=== PATIENT | female | born 1955 | race Caucasian/White ===

== ENCOUNTER → 2017-08-04 | Outpatient (CLI) | payer MEDICARE, OTHER ==
[~2017-08-04] MED LIST: AMINOPHYLLINE 500 MG/20 ML VIAL IV ONE; REGADENOSON 0.4 MG/5 ML SYRINGE IV ONE
--- NOTE | 2017-08-04 12:08 | NM ---
EXAMINATION TYPE: NM stress lexiscan cardiolite DATE OF EXAM: 08/04/2017 COMPARISON: NONE HISTORY: Angina TECHNIQUE: After the intravenous administration of 10.08 mCi Tc 99m Sestamibi - Cardiolite resting S PECT images acquired 45 minutes post injection. The patient received 0.4mg Lexiscan, 25.5 mCi Tc 99m Sestamibi - Stress images obtained [address] injection FINDINGS: Review of stress and rest SPECT images demonstrates no distinct perfusion abnormality. Gated analysi s shows normal wall motion with an estimated left ventricular ejection fraction of 63 %. IMPRESSION: No scintigraphic evidence for reversible ischemia.
--- NOTE | 2017-08-04 17:12 | EST ---
EXERCISE STRESS DATE OF SERVICE: August 04, 2017 AGE: 62 SEX: F HT: 5-7 WT: 155 PROTOCOL: Lexiscan Cardiolite HEART RATE REST: 57 BLOOD PRESSURE REST: 103/48 MAXIMUM HEART RATE ACHIEVED: 82 MAXIMUM BLOOD PRESSURE: 121/64 85% MPHR: 133 100% MPHR: 157 INDICATIONS: Chest pain. CLINICAL INFORMATION: STRESS DATA: Pretesting physical examination showed a heart rate of 57, pressure is 103/48 mmHg. Baseline EKG showed sinus mechanism. 0.4 mg of Lexiscan was given to the patient over 15 seconds per protocol. The max heart rate was 82 beats per minute and maximum pressure was 121/64 mmHg. Clinically the patient did not have any symptoms of chest pain or discomfort and the EKG did not show any significant ST or T-wave abnormalities consistent with ischemia. CONCLUSION: 1. Nondiagnostic electrocardiogram stress testing in response to Lexiscan. 2. Please follow up on the Cardiolite portion on separate report from the Radiology Department. MMODL / IJN: [id number] /
== END | disposition home or self-care (01) ==
LOC: RADNMMAIN 08:41
PROVIDERS: ATTEND Family Medicine
DX: I20.9 Angina pectoris, unspecified (principal); Z88.2 Allergy status to sulfonamides; Z88.8 Allergy status to other drugs, medicaments and biological substances
CPT/HCPCS: 93017; 78452; A9500; J0280; J2785

== ENCOUNTER 2018-11-02 10:30 | Emergency (ER) | payer MEDICARE, OTHER ==
[2018-11-02] MEDS ORDERED: IPRATROPIUM-ALBUTEROL 3 ML NEB INHALATION STA (11:14)
--- NOTE | 2018-11-02 11:17 | ED ---
General Adult HPI - General Chief complaint: Shortness of Breath Stated complaint: Altered mental Time Seen by Provider: 11/02/18 10:57 Source: patient, EMS, RN notes reviewed Mode of arrival: EMS Limitations: altered mental status - History of Present Illness Initial comments: Patient is a pleasant [age]-year-old female presenting to the emergency Dep artment with difficulty in breathing and reported change in mental status. Patient provides limited history. Patient is somewhat drowsy. Patient admits to feeling short of breath and has history of COPD. Patient states mild cough. Patient states she does not feel confused. Patient denies any swelling. No fevers. - Related Data Home Medications Medication Instructions Recorded Confirmed Amitriptyline HCl [Elavil] 100 mg PO HS 11/02/18 11/02/18 Baclofen [Lioresal] 20 mg PO TID 11/02/18 11/02/18 Benzonatate [Tessalon Perles] 100 mg PO TID PRN 11/02/18 11/02/18 Ibuprofen [Motrin] 800 mg PO TID PRN 11/02/18 11/02/18 Levocetirizine Dihydrochloride 5 mg PO DAILY 11/02/18 11/02/18 Lubiprostone [Amitiza] 24 mcg PO DAILY 11/02/18 11/02/18 Montelukast [Singulair] 10 mg PO DAILY 11/02/18 11/02/18 Morphine Sulfate [Morphabond ER] 60 mg PO Q12H 11/02/18 11/02/18 [place]-3 Acid Ethyl Esters [Lovaza] 1 gm PO QID 11/02/18 11/02/18 Pantoprazole Sodium [Protonix] 40 mg PO DAILY 11/02/18 11/02/18 Pregabalin [Lyrica] 150 mg PO BID 11/02/18 11/02/18 Sertraline [Zoloft] 100 mg PO BID 11/02/18 11/02/18 Simvastatin [Zocor] 40 mg PO HS 11/02/18 11/02/18 valACYclovir HCL [Valtrex] 1,000 mg PO DAILY 11/02/18 11/02/18 Allergies Allergy/AdvReac Type Severity Reaction Status Date / Time etanercept [From Enbrel] Allergy Unknown Verified 11/02/18 11:04 sulfamethoxazole Allergy Unknown Verified 11/02/18 11:04 [From Bactrim] trimethoprim [From Bactrim] Allergy Unknown Verified 11/02/18 11:04 Review of Systems ROS Statement: Those systems with pertinent positive or pertinent negative responses have been documented in the HPI. ROS Other: All systems not noted in ROS Statement are negative. Constitutional: Denies: fever Eyes: Denies: eye pain ENT: Denies: ear pain Respiratory: Reports: dyspnea Cardiovascular: Denies: chest pain Endocrine: Reports: fatigue Gastrointestinal: Denies: abdominal pain Genitourinary: Denies: dysuria Musculoskeletal: Denies: back pain Skin: Denies: rash Neurological: Reports: as per HPI. Denies: headache, weakness Past Medical History Past Medical History: Heart Failure, COPD, Hyperlipidemia History of Any Multi-Drug Resistant Organisms: None Reported Past Surgical History: Orthopedic Surgery Past Psychological History: Anxiety, Depression Smoking Status: Current every day smoker Past Alcohol Use History: None Reported Past Drug Use History: None Reported General Exam Limitations: altered mental status General appearance: other (Drowsy) Head exam: Present: atraumatic, normocephalic Eye exam: Present: PERRL, EOMI, other (Bilateral periorbital edema) ENT exam: Present: normal oropharynx Neck exam: Present: normal inspection Respiratory exam: Present: wheezes, decreased breath sounds Cardiovascular Exam: Present: regular rate, normal rhythm GI/Abdominal exam: Present: soft. Absent: tenderness Extremities exam: Present: normal inspection. Absent: pedal edema, calf tenderness Neurological exam: Present: other (Drowsy but able to answer most questions. Does follow commands, slightly delayed). Absent: motor sensory deficit Expanded Neurological exam: Present: protecting the airway Patient oriented to: Present: person, place. Absent: time Motor strength exam: RUE: 5, LUE: 5, RLE: 5, LLE: 5 Eye Response: (4) open spontaneously Motor Response: (6) obeys commands Verbal Response: (4) confused conversation Psychiatric exam: Present: normal affect, normal mood Skin exam: Present: normal color Course Vital Signs 11/02/18 11/02/18 11/02/18 10:35 10:51 11:00 Temperature 98.9 F Pulse Rate 88 86 Respiratory 24 11 L Rate Blood Pressure 105/61 105/61 O2 Sat by Pulse 96 88 L 95 Oximetry 11/02/18 11/02/18 11/02/18 11:15 11:30 11:45 Temperature Pulse Rate 81 75 71 Respiratory 11 L 18 19 Rate Blood Pressure 85/64 113/62 87/67 O2 Sat by Pulse 92 L 96 97 Oximetry 11/02/18 11/02/18 11/02/18 11:54 12:08 12:15 Temperature Pulse Rate 66 70 65 Respiratory 16 Rate Blood Pressure 80/59 O2 Sat by Pulse 96 Oximetry EKG Findings - EKG Comments: EKG Findings:: Normal sinus rhythm 85. OR 134. QRS 80. QT 386. QTc 459. Normal axis. Septal Q waves. No acute ST change. Procedures - ABG Interpretation Ph: 7.27 PCO2: 64.5 PO2: 87 Interpretation: respiratory acidosis Medical Decision Making - Medical Decision Making Patient reevaluated and significantly improved. Patient easily arousable to voice. Patient is more alert for conversation. Periorbital edema is somewhat improved. Patient has been lying more regularly. Previously patient had persistently tried to sit forward and keep her head down. This is possibly the reason for eye edema. Patient states she is feeling much better and more alert. Patient states she is also breathing much better. Dr. Richardson she has been paged for admission, covering for Dr. Chong. Patient states she sees Dr. Estee Coburn with pulmonary. - Lab Data Result diagrams: 11/02/18 11:06 11/02/18 11:06 Lab Results 11/02/18 11/02/18 11/02/18 Range/Units 11:06 11:06 11:06 WBC 9.7 (3.8-10.6) k/uL RBC 4.60 (3.80-5.40) m/uL Hgb 14.5 (11.4-16.0) gm/dL Hct 46.6 H (34.0-46.0) % MCV 101.3 H (80.0-100.0) fL MCH 31.6 (25.0-35.0) pg MCHC 31.2 (31.0-37.0) g/dL RDW 15.3 (11.5-15.5) % Plt Count 183 (150-450) k/uL Neutrophils % 78 % Lymphocytes % 15 % Monocytes % 4 % Eosinophils % 1 % Basophils % 0 % Neutrophils # 7.6 (1.3-7.7) k/uL Lymphocytes # 1.5 (1.0-4.8) k/uL Monocytes # 0.4 (0-1.0) k/uL Eosinophils # 0.1 (0-0.7) k/uL Basophils # 0.0 (0-0.2) k/uL Macrocytosis Slight PT (9.0-12.0) sec INR (<1.2) APTT (22.0-30.0) sec Sample Site ABG pH (7.35-7.45) ABG pCO2 (35-45) mmHg ABG pO2 (83-108) mmHg ABG HCO3 (21-25) mmol/L ABG O2 Saturation (94-97) % ABG Base Excess mmol/L FiO2 % Sodium 141 (137-145) mmol/L Potassium 4.4 (3.5-5.1) mmol/L Chloride 105 (98-107) mmol/L Carbon Dioxide 28 (22-30) mmol/L Anion Gap 8 mmol/L BUN 14 (7-17) mg/dL Creatinine 0.70 (0.52-1.04) mg/dL Est GFR (CKD-EPI)AfAm >90 (>60 ml/min/1.73 sqM) Est GFR (CKD-EPI)NonAf >90 (>60 ml/min/1.73 sqM) Glucose 117 H (74-99) mg/dL Calcium 9.0 (8.4-10.2) mg/dL Magnesium 2.0 (1.6-2.3) mg/dL Total Bilirubin 0.3 (0.2-1.3) mg/dL AST 33 (14-36) U/L ALT 36 (9-52) U/L Alkaline Phosphatase 72 (38-126) U/L Creatine Kinase 245 H (30-135) U/L Troponin I (0.000-0.034) ng/mL NT-Pro-B Natriuret Pep 374 pg/mL Total Protein 6.7 (6.3-8.2) g/dL Albumin 3.8 (3.5-5.0) g/dL Urine Color Urine Appearance (Clear) Urine pH (5.0-8.0) Ur Specific [place] (1.001-1.035) Urine Protein (Negative) Urine Glucose (UA) (Negative) Urine Ketones (Negative) Urine Blood (Negative) Urine Nitrite (Negative) Urine Bilirubin (Negative) Urine Urobilinogen (<2.0) mg/dL Ur Leukocyte Esterase (Negative) Urine Opiates Screen (NotDetected) Ur Oxycodone Screen (NotDetected) Urine Methadone Screen (NotDetected) Ur Propoxyphene Screen (NotDetected) Ur Barbiturates Screen (NotDetected) U Tricyclic Antidepress (NotDetected) Ur Phencyclidine Scrn (NotDetected) Ur Amphetamines Screen (NotDetected) U Methamphetamines Scrn (NotDetected) U Benzodiazepines Scrn (NotDetected) Urine Cocaine Screen (NotDetected) U Marijuana (THC) Screen (NotDetected) 11/02/18 11/02/18 11/02/18 Range/Units 11:06 11:06 11:30 WBC (3.8-10.6) k/uL RBC (3.80-5.40) m/uL Hgb (11.4-16.0) gm/dL Hct (34.0-46.0) % MCV (80.0-100.0) fL MCH (25.0-35.0) pg MCHC (31.0-37.0) g/dL RDW (11.5-15.5) % Plt Count (150-450) k/uL Neutrophils % % Lymphocytes % % Monocytes % % Eosinophils % % Basophils % % Neutrophils # (1.3-7.7) k/uL Lymphocytes # (1.0-4.8) k/uL Monocytes # (0-1.0) k/uL Eosinophils # (0-0.7) k/uL Basophils # (0-0.2) k/uL Macrocytosis PT 10.4 (9.0-12.0) sec INR 1.0 (<1.2) APTT 24.8 (22.0-30.0) sec Sample Site rrad ABG pH 7.27 L (7.35-7.45) ABG pCO2 65 H (35-45) mmHg ABG pO2 87 (83-108) mmHg ABG HCO3 29 H (21-25) mmol/L ABG O2 Saturation 97.5 H (94-97) % ABG Base Excess 0.2 mmol/L FiO2 32 % Sodium (137-145) mmol/L Potassium (3.5-5.1) mmol/L Chloride (98-107) mmol/L Carbon Dioxide (22-30) mmol/L Anion Gap mmol/L BUN (7-17) mg/dL Creatinine (0.52-1.04) mg/dL Est GFR (CKD-EPI)AfAm (>60 ml/min/1.73 sqM) Est GFR (CKD-EPI)NonAf (>60 ml/min/1.73 sqM) Glucose (74-99) mg/dL Calcium (8.4-10.2) mg/dL Magnesium (1.6-2.3) mg/dL Total Bilirubin (0.2-1.3) mg/dL AST (14-36) U/L ALT (9-52) U/L Alkaline Phosphatase (38-126) U/L Creatine Kinase (30-135) U/L Troponin I <0.012 (0.000-0.034) ng/mL NT-Pro-B Natriuret Pep pg/mL Total Protein (6.3-8.2) g/dL Albumin (3.5-5.0) g/dL Urine Color Urine Appearance (Clear) Urine pH (5.0-8.0) Ur Specific [place] (1.001-1.035) Urine Protein (Negative) Urine Glucose (UA) (Negative) Urine Ketones (Negative) Urine Blood (Negative) Urine Nitrite (Negative) Urine Bilirubin (Negative) Urine Urobilinogen (<2.0) mg/dL Ur Leukocyte Esterase (Negative) Urine Opiates Screen (NotDetected) Ur Oxycodone Screen (NotDetected) Urine Methadone Screen (NotDetected) Ur Propoxyphene Screen (NotDetected) Ur Barbiturates Screen (NotDetected) U Tricyclic Antidepress (NotDetected) Ur Phencyclidine Scrn (NotDetected) Ur Amphetamines Screen (NotDetected) U Methamphetamines Scrn (NotDetected) U Benzodiazepines Scrn (NotDetected) Urine Cocaine Screen (NotDetected) U Marijuana (THC) Screen (NotDetected) 11/02/18 Range/Units 13:40 WBC (3.8-10.6) k/uL RBC (3.80-5.40) m/uL Hgb (11.4-16.0) gm/dL Hct (34.0-46.0) % MCV (80.0-100.0) fL MCH (25.0-35.0) pg MCHC (31.0-37.0) g/dL RDW (11.5-15.5) % Plt Count (150-450) k/uL Neutrophils % % Lymphocytes % % Monocytes % % Eosinophils % % Basophils % % Neutrophils # (1.3-7.7) k/uL Lymphocytes # (1.0-4.8) k/uL Monocytes # (0-1.0) k/uL Eosinophils # (0-0.7) k/uL Basophils # (0-0.2) k/uL Macrocytosis PT (9.0-12.0) sec INR (<1.2) APTT (22.0-30.0) sec Sample Site ABG pH (7.35-7.45) ABG pCO2 (35-45) mmHg ABG pO2 (83-108) mmHg ABG HCO3 (21-25) mmol/L ABG O2 Saturation (94-97) % ABG Base Excess mmol/L FiO2 % Sodium (137-145) mmol/L Potassium (3.5-5.1) mmol/L Chloride (98-107) mmol/L Carbon Dioxide (22-30) mmol/L Anion Gap mmol/L BUN (7-17) mg/dL Creatinine (0.52-1.04) mg/dL Est GFR (CKD-EPI)AfAm (>60 ml/min/1.73 sqM) Est GFR (CKD-EPI)NonAf (>60 ml/min/1.73 sqM) Glucose (74-99) mg/dL Calcium (8.4-10.2) mg/dL Magnesium (1.6-2.3) mg/dL Total Bilirubin (0.2-1.3) mg/dL AST (14-36) U/L ALT (9-52) U/L Alkaline Phosphatase (38-126) U/L Creatine Kinase (30-135) U/L Troponin I (0.000-0.034) ng/mL NT-Pro-B Natriuret Pep pg/mL Total Protein (6.3-8.2) g/dL Albumin (3.5-5.0) g/dL Urine Color Yellow Urine Appearance Clear (Clear) Urine pH 5.5 (5.0-8.0) Ur Specific [place] 1.022 (1.001-1.035) Urine Protein Trace H (Negative) Urine Glucose (UA) Negative (Negative) Urine Ketones Negative (Negative) Urine Blood Negative (Negative) Urine Nitrite Negative (Negative) Urine Bilirubin Negative (Negative) Urine Urobilinogen <2.0 (<2.0) mg/dL Ur Leukocyte Esterase Negative (Negative) Urine Opiates Screen Detected H (NotDetected) Ur Oxycodone Screen Not Detected (NotDetected) Urine Methadone Screen Not Detected (NotDetected) Ur Propoxyphene Screen Not Detected (NotDetected) Ur Barbiturates Screen Detected H (NotDetected) U Tricyclic Antidepress Detected H (NotDetected) Ur Phencyclidine Scrn Not Detected (NotDetected) Ur Amphetamines Screen Not Detected (NotDetected) U Methamphetamines Scrn Not Detected (NotDetected) U Benzodiazepines Scrn Detected H (NotDetected) Urine Cocaine Screen Not Detected (NotDetected) U Marijuana (THC) Screen Not Detected (NotDetected) - Radiology Data Radiology results: report reviewed (Computed tomography scan of the brain shows no acute abnormality. Atrophy and age of the basilar artery versus basilar tip aneurysm. Bilateral periorbital preseptal soft tissue swelling. Globes are intact.), image reviewed (Chest x-ray shows right-sided atelectasis versus infiltrate. Elevated left hemidiaphragm.) Critical Care Time Critical Care Time: Yes Total Critical Care Time: 32 Disposition Clinical Impression: Respiratory failure, Hypercarbia Disposition: ADMITTED IP TO THIS [facility] Condition: Serious Is patient prescribed a controlled substance at d/c from ED?: No Referrals: Verenice Chong MD [Primary Care Provider] - 1-2 days Decision Time: 14:57
[2018-11-02 11:40] LABS: ABG Base Excess 0.2 mmol/L; ABG HCO3 29 mmol/L (21-25); ABG Oxygen Saturation 97.5 % (94-97); ABG PCO2 65 mmHg (35-45); ABG PH 7.27 (7.35-7.45); ABG PO2 87 mmHg (83-108); Allen Test Performed? Yes
[2018-11-02 11:52] LABS: Basophils % (A) 0 %; Eosinophils # (A) 0.1 k/uL (0-0.7); Eosinophils % (A) 1 %; HCT 46.6 % (34.0-46.0); HGB 14.5 gm/dL (11.4-16.0); Lymphocytes # (A) 1.5 k/uL (1.0-4.8); Lymphocytes % (A) 15 %; MCH 31.6 pg (25.0-35.0); MCHC 31.2 g/dL (31.0-37.0); MCV 101.3 fL (80.0-100.0); Macrocytosis Slight; Mean Platelet Volume 7.7; Monocytes # (A) 0.4 k/uL (0-1.0); Monocytes % (A) 4 %; Neutrophils # (A) 7.6 k/uL (1.3-7.7); Neutrophils % (A) 78 %; Platelet Count 183 k/uL (150-450); RDW 15.3 % (11.5-15.5); WBC 9.7 k/uL (3.8-10.6)
[2018-11-02 11:59] LABS: ALT 36 U/L (9-52); AST 33 U/L (14-36); African American GFR (CKD) >90 (>60 ml/min/1.73 sqM); Albumin 3.8 g/dL (3.5-5.0); Alkaline Phosphatase 72 U/L (38-126); Anion Gap 8 mmol/L; Blood Urea Nitrogen 14 mg/dL (7-17); Carbon Dioxide 28 mmol/L (22-30); Chloride 105 mmol/L (98-107); Creatine Kinase 245 U/L (30-135); Glucose 117 mg/dL (74-99); Non-African American GFR(CKD) >90 (>60 ml/min/1.73 sqM); Partial Thromboplastin Time 24.8 sec (22.0-30.0); Potassium 4.4 mmol/L (3.5-5.1); Prothrombin Time 10.4 sec (9.0-12.0); Sodium 141 mmol/L (137-145); Total Bilirubin 0.3 mg/dL (0.2-1.3); Total Protein 6.7 g/dL (6.3-8.2)
--- NOTE | 2018-11-02 12:16 | XR ---
EXAMINATION TYPE: XR chest 1V DATE OF EXAM: 11/02/2018 COMPARISON: NONE HISTORY: Difficulty breathing TECHNIQUE: Single frontal view of the chest is obtained. FINDINGS: There is left hemidiaphragm elevation. Patchy right lower lobe airspace disease and inters titial prominence throughout the right lung are seen. Cardia mediastinal silhouette is partially obsc ured but appears upper limits of normal in size. No sizable pleural effusion or pneumothorax. Mild os seous demineralization without acute osseous process seen. IMPRESSION: Patchy right basilar airspace disease and right-sided interstitial prominence may be exa ggerated by slight rotation although early developing right basilar pneumonia/atelectasis are possibl e. Left hemidiaphragm is also elevated. Sniff test could be considered if there is concern for diaphr agmatic paresis.
--- NOTE | 2018-11-02 13:51 | CT ---
EXAMINATION TYPE: CT brain wo con DATE OF EXAM: 11/02/2018 COMPARISON: None HISTORY: Altered mental status changes CT DLP: 1190.4 mGycm Automated exposure control for dose reduction was used. TECHNIQUE: CT scan of the head is performed without contrast. FINDINGS: There is no acute intracranial hemorrhage or midline shift identified. There is mild diff use ventricular and sulcal prominence consistent with diffuse age-related cerebral atrophy. There is low-attenuation in the periventricular white matter consistent with chronic small vessel ischemic ch marjorie. Scant mucosal thickening is seen on the left maxillary sinus and ethmoid sinuses. The globes ar e intact and the remaining visualized sinuses are clear. There appears to be bilateral periorbital preseptal soft tissue swelling. IMPRESSION: 1. No acute intracranial hemorrhage or midline shift. 2. Mild degree age-related cerebral atrophy and few areas of patchy hypoattenuation, likely on the ba sis of chronic microangiopathy. 3. 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 CTA or MRA brain could be utilized for further evaluation. 4. Bilateral periorbital preseptal soft tissue swelling. The globes appear intact and no evidence of lens displacement.
[2018-11-02 13:54] LABS: Appearance,Urine Clear (Clear); Bilirubin,Urine Negative (Negative); Blood,Urine Negative (Negative); Color,Urine Yellow; Glucose,Urine (UA) Negative (Negative); Ketones,Urine Negative (Negative); Leukocyte Esterase,Urine Negative (Negative); Nitrite,Urine Negative (Negative); PH, Urine 5.5 (5.0-8.0); Protein,Urine Trace (Negative); Specific Gravity,Urine 1.022 (1.001-1.035); Urobilinogen,Urine <2.0 mg/dL (<2.0)
[2018-11-02 14:03] LABS: Amphetamine Screen,Urine Not Detected (NotDetected); Benzodiazepines Screen,Urine Detected (NotDetected); Cocaine Screen,Urine Not Detected (NotDetected); Opiate Screen,Urine Detected (NotDetected); Phencyclidine Screen,Urine Not Detected (NotDetected); Tricyclic Antidepressant,Urine Detected (NotDetected); Urn Cannabinoid Scrn Not Detected (NotDetected)
[2018-11-02 14:04] LABS: Barbiturate Screen,Urine Detected (NotDetected); Methadone Screen, Urine Not Detected (NotDetected); Oxycodone Screen, Urine Not Detected (NotDetected)
[2018-11-02] MEDS ORDERED: IPRATROPIUM-ALBUTEROL 3 ML NEB INHALATION PRN (14:57)
[2018-11-02] MEDS ORDERED: methylPREDNISolone SOD SUCCI 125 MG/2 ML VIAL IV STA (14:57)
[2018-11-02] MEDS ORDERED: SODIUM CHLORIDE 0.9% 1,000 ML IV SCH (15:00)
[2018-11-02] MEDS ORDERED: IPRATROPIUM-ALBUTEROL 3 ML NEB INHALATION SCH (16:00)
[2018-11-02 16:22] VITALS: BP 122/74; PULSE 81; RESP 24
[2018-11-02 16:28] VITALS: TEMP 98.2
[2018-11-02] MEDS ORDERED: methylPREDNISolone SOD SUCCI 125 MG/2 ML VIAL IV SCH (19:00)
== END 2018-11-02 16:27 | disposition left against medical advice (07) ==
LOC: EC 10:30 → SUPCPDRO 10:30 → UNDOADMIN 14:57 → 3SCARD 14:57 → EC 16:27
DX: J96.92 Respiratory failure, unspecified with hypercapnia (principal); E78.5 Hyperlipidemia, unspecified; F41.9 Anxiety disorder, unspecified; F32.9 Major depressive disorder, single episode, unspecified; F17.200 Nicotine dependence, unspecified, uncomplicated; Z79.891 Long term (current) use of opiate analgesic; Z79.899 Other long term (current) drug therapy; Z88.8 Allergy status to other drugs, medicaments and biological substances; Z88.2 Allergy status to sulfonamides
CPT/HCPCS: 36415; 94660; 94640; 36600; 93005; 83880; 80053; 82550; 82805; 83735; 84484; 85025; 85610; 85730; 81003; 80306; 71045; 70450; 99291; 96374; 96361; J2930

== ENCOUNTER 2021-07-17 13:54 | Inpatient (IN) | payer MEDICARE, OTHER ==
--- NOTE | 2021-07-17 14:26 | ED ---
General Adult HPI - General Chief complaint: Altered Mental Status Stated complaint: UTI/AMS Time Seen by Provider: 07/17/21 14:06 Source: EMS Mode of arrival: EMS Limitations: no limitations - History of Present Illness Initial comments: This 66-year-old female presents emergency Department with altered mental status. Patient is a poor historian and was brought in by EMS as a bystander found patient wandering around outside. Patient is awake and alert sitting in bed. Patient is able to tell me her name, however she is unable to tell me where she is at where she is at or her age. Patient is sitting in bed looking around, wearing 2 different sandals and in a nightgown. Patient is unable to answer any questions. - Related Data Home Medications Medication Instructions Recorded Confirmed Amitriptyline HCl [Elavil] 100 mg PO HS 11/02/18 07/17/21 Ibuprofen [Motrin] 800 mg PO TID PRN 11/02/18 07/17/21 Montelukast [Singulair] 10 mg PO DAILY 11/02/18 07/17/21 Pantoprazole Sodium [Protonix] 40 mg PO DAILY 11/02/18 07/17/21 Pregabalin [Lyrica] 150 mg PO BID 11/02/18 07/17/21 Sertraline [Zoloft] 100 mg PO BID 11/02/18 07/17/21 Simvastatin [Zocor] 40 mg PO HS 11/02/18 07/17/21 Butalb/APAP/Caff 50-325-40Mg 1 - 2 tab PO Q6H PRN 07/17/21 07/17/21 [Fioricet 50-325-40] Cyclobenzaprine [Flexeril] 10 mg PO TID 07/17/21 07/17/21 Fluticasone/Salmeterol [Advair Hfa 1 puff INHALATION RT-BID 07/17/21 07/17/21 230-21 Mcg Inhaler] Folic Acid 1 mg PO DAILY 07/17/21 07/17/21 HYDROcodone/APAP 10-325MG [[place] 1 tab PO BID PRN 07/17/21 07/17/21 10-325] Ipratropium-Albuterol Nebulize 3 ml INHALATION RT-Q6H PRN 07/17/21 07/17/21 [Duoneb 0.5 mg-3 mg/3 ml Soln] Ipratropium/Albuter 20-100Mcg 2 puff INHALATION RT-Q6H PRN 07/17/21 07/17/21 [Combivent Respimat 20-100Mcg Inhaler] LORazepam [Ativan] 1 mg PO QID PRN 07/17/21 07/17/21 Loratadine [Claritin] 10 mg PO DAILY 07/17/21 07/17/21 Lubiprostone [Amitiza] 24 mcg PO DAILY 07/17/21 07/17/21 Morphine Sulfate ER [Ms Contin] 60 mg PO BID 07/17/21 07/17/21 Allergies Allergy/AdvReac Type Severity Reaction Status Date / Time etanercept [From Enbrel] Allergy Unknown Verified 07/17/21 16:36 sulfamethoxazole Allergy Unknown Verified 07/17/21 16:36 [From Bactrim] trimethoprim [From Bactrim] Allergy Unknown Verified 07/17/21 16:36 Review of Systems ROS Statement: Those systems with pertinent positive or pertinent negative responses have been documented in the HPI. ROS Other: All systems not noted in ROS Statement are negative. Past Medical History Past Medical History: Heart Failure, COPD, Hyperlipidemia History of Any Multi-Drug Resistant Organisms: None Reported Past Surgical History: Orthopedic Surgery Past Psychological History: Anxiety, Depression Smoking Status: Current every day smoker Past Alcohol Use History: None Reported Past Drug Use History: None Reported General Exam Limitations: no limitations, altered mental status General appearance: alert, in no apparent distress, other ([facility] Hair unbrushed, wearing 2 different issues) Head exam: Present: atraumatic, normocephalic, normal inspection Eye exam: Present: normal appearance, PERRL, EOMI. Absent: scleral icterus, conjunctival injection, periorbital swelling Pupils: Present: normal accommodation ENT exam: Present: normal exam, mucous membranes moist, other (Poor oral hygiene) Neck exam: Present: full ROM Respiratory exam: Present: normal lung sounds bilaterally. Absent: respiratory distress, wheezes, rales, rhonchi, stridor Cardiovascular Exam: Present: regular rate, normal rhythm, normal heart sounds. Absent: systolic murmur, diastolic murmur, rubs, gallop, clicks GI/Abdominal exam: Present: soft, normal bowel sounds. Absent: distended, tenderness, guarding, rebound, rigid Extremities exam: Present: full ROM, normal capillary refill. Absent: normal inspection (Venous insufficiency with brownish discoloration of bilateral feet. DP pulses palpable), tenderness, pedal edema, joint swelling, calf tenderness Back exam: Present: full ROM. Absent: CVA tenderness (R), CVA tenderness (L), paraspinal tenderness, vertebral tenderness Neurological exam: Present: alert, altered, other (When asked to raise bilateral arms, bilateral legs, squeeze my fingers, follow my finger and 6 cardinal signs of direction, patient does not perform any of these tasks. She just looked at me and smiled. When asking patient to raise bilateral arms and bilateral legs, she does look at me and smiled.). Absent: oriented X3 (Patient is unable to state her name, where she is at, or her age) Skin exam: Present: warm, dry, intact Course Vital Signs 07/17/21 07/17/21 07/17/21 14:11 14:14 15:52 Temperature 98.9 F Pulse Rate 99 89 Respiratory 22 20 Rate Blood Pressure 157/88 150/92 O2 Sat by Pulse 100 98 Oximetry 07/17/21 17:18 Temperature Pulse Rate 96 Respiratory 20 Rate Blood Pressure 156/99 O2 Sat by Pulse 99 Oximetry - Reevaluation(s) Reevaluation #1: 07/17/21 14:32 On reevaluation, patient states her name is Beverly. Patient is awake and alert. She is unsure where she is at or her age. She denies any chest pain, shortness of breath, nausea, vomiting, headache, lightheadedness, dizziness 07/17/21 15:03 On reevaluation, Patient is awake and alert. Patient knows her name She is unsure where she is at or her age. She denies any chest pain, shortness of breath, nausea, vomiting, headache, lightheadedness, dizziness. She denies any abdominal pain, change in vision 07/17/21 16:24 On reevaluation, patient states her name is Beverly. Patient is sitting in bed, awake and alert. She is unsure where she is at or her age. She denies any chest pain, shortness of breath, nausea, vomiting, headache, lightheadedness, dizziness. Waiting to begin heparin until CTA results. 07/17/21 16:59 On reevaluation, patient states her name is Beverly. Patient is sitting in bed, awake and alert. She is unsure where she is at or her age. She denies any chest pain, shortness of breath, nausea, vomiting, headache, lightheadedness, dizzines 07/17/21 17:26 On reevaluation, patient is awake and alert. She is able to state her name is Beverly. She is unsure where she is at. She is not sure what year it is and she does not know her age. She is denying any symptoms at this time such as chest pain, shortness of breath, abdominal pain, nausea, vomiting, headache, lightheadedness, dizziness. CT scans were interpreted, no intracranial hemorrhage present. Heparin was started for elevated troponin 07/17/21 18:01 On reexamination, patient is awake and alert sitting in bed. She is denying any chest pain or shortness of breath. Patient states "I feel good." Patient stat es her name is Beverly, however when asked where she is she states "I don't know." I did admit patient to 's services. He did instruct that I stop patient's heparin. He stated he was going to consult neurology and did not recommend me consulting cardiology. He did recommend I placed patient on telemetry, daily aspirin and Lipitor which I did place. I did inform my attending, Dr. Morrow of these changes as well. 07/17/21 18:36 On reexamination, patient is awake and alert. Patient is sitting in bed. Patient is aware of who she is and did state her name, however she states she d oesn't know what year it is or where she is at. EKG Findings - EKG Comments: EKG Findings:: EKG impression: Sinus rhythm with occasional ventricular premature complexes. Ventricular rate 99 bpm. MI interval 125. QRS duration 95. QT/QTc 404/460. No ST elevations noted. EKG interpreted by myself, Dr. Morrow and Dr. Smith Medical Decision Making - Medical Decision Making This 66-year-old female presents to the emergency department brought in by EMS who was called by a bystander who saw patient walking outside alone and looks disheveled. Patient was uncooperative with interview and would not answer any questions other than her name on examination. Patient's labs without any leukocytosis. Potassium 3.0 and patient was given supplement per 's recommendation. Troponin 0.285, I did begin patient on heparin due to her elevated troponin, however after speaking to , he instructed me to remove the heparin as he believes the troponin elevation is neurologically related. He stated he would consult neurology for this patient. He instructed me not to consult cardiology. He did instruct me to place patient on telemetry, daily aspirin and Lipitor which I did begin patient on. I did discuss his request along with the patient's case in detail with my attending, Dr. Morrow. Toxicology with opiates, barbiturates and tricyclic antidepressants detected. Patient with CT brain without contrast impression no acute intracranial hemorrhage or gross acute cortical infarct. CTA head and neck impression: No significant arterial stenosis, occlusion, dissection or other acute arterial abnormality. Questionable small 4 mm saccular aneurysm versus infundibulum of the supraclinoid portion of the left internal carotid artery. Chest x-ray impression: COPD changes, similar chronic interstitial changes in the right greater in left, similar elevated left diaphragm. - Lab Data Result diagrams: 07/17/21 14:25 07/17/21 14:25 Lab Results 07/17/21 07/17/21 07/17/21 Range/Units 14:25 14:25 14:25 WBC 6.8 (3.8-10.6) k/uL RBC 4.77 (3.80-5.40) m/uL Hgb 15.4 (11.4-16.0) gm/dL Hct 47.2 H (34.0-46.0) % MCV 98.8 (80.0-100.0) fL MCH 32.3 (25.0-35.0) pg MCHC 32.7 (31.0-37.0) g/dL RDW 15.0 (11.5-15.5) % Plt Count 171 (150-450) k/uL MPV 8.8 Neutrophils % 80 % Lymphocytes % 12 % Monocytes % 6 % Eosinophils % 1 % Basophils % 0 % Neutrophils # 5.4 (1.3-7.7) k/uL Lymphocytes # 0.8 L (1.0-4.8) k/uL Monocytes # 0.4 (0-1.0) k/uL Eosinophils # 0.1 (0-0.7) k/uL Basophils # 0.0 (0-0.2) k/uL PT 12.2 H (9.0-12.0) sec INR 1.1 (<1.2) APTT 24.5 (22.0-30.0) sec Sodium (137-145) mmol/L Potassium (3.5-5.1) mmol/L Chloride (98-107) mmol/L Carbon Dioxide (22-30) mmol/L Anion Gap mmol/L BUN (7-17) mg/dL Creatinine (0.52-1.04) mg/dL Est GFR (CKD-EPI)AfAm (>60 ml/min/1.73 sqM) Est GFR (CKD-EPI)NonAf (>60 ml/min/1.73 sqM) Glucose (74-99) mg/dL POC Glucose (mg/dL) (75-99) mg/dL POC Glu Service Desk Team Lead ID Calcium (8.4-10.2) mg/dL Total Bilirubin (0.2-1.3) mg/dL AST (14-36) U/L ALT (4-34) U/L Alkaline Phosphatase (38-126) U/L Ammonia (<30) umol/L Troponin I (0.000-0.034) ng/mL Total Protein (6.3-8.2) g/dL Albumin (3.5-5.0) g/dL Urine Color Yellow Urine Appearance Clear (Clear) Urine pH 6.5 (5.0-8.0) Ur Specific [place] 1.022 (1.001-1.035) Urine Protein 1+ H (Negative) Urine Glucose (UA) Negative (Negative) Urine Ketones 2+ H (Negative) Urine Blood Small H (Negative) Urine Nitrite Negative (Negative) Urine Bilirubin Negative (Negative) Urine Urobilinogen <2.0 (<2.0) mg/dL Ur Leukocyte Esterase Negative (Negative) Urine RBC 35 H (0-5) /hpf Urine WBC 2 (0-5) /hpf Ur Squamous Epith Cells <1 (0-4) /hpf Urine Bacteria Rare H (None) /hpf Urine Mucus Many H (None) /hpf Urine Opiates Screen Detected H (NotDetected) Ur Oxycodone Screen Not Detected (NotDetected) Urine Methadone Screen Not Detected (NotDetected) Ur Propoxyphene Screen Not Detected (NotDetected) Ur Barbiturates Screen Detected H (NotDetected) U Tricyclic Antidepress Detected H (NotDetected) Ur Phencyclidine Scrn Not Detected (NotDetected) Ur Amphetamines Screen Not Detected (NotDetected) U Methamphetamines Scrn Not Detected (NotDetected) U Benzodiazepines Scrn Not Detected (NotDetected) Urine Cocaine Screen Not Detected (NotDetected) U Marijuana (THC) Screen Not Detected (NotDetected) Serum Alcohol mg/dL 07/17/21 07/17/21 07/17/21 Range/Units 14:25 14:25 14:25 WBC (3.8-10.6) k/uL RBC (3.80-5.40) m/uL Hgb (11.4-16.0) gm/dL Hct (34.0-46.0) % MCV (80.0-100.0) fL MCH (25.0-35.0) pg MCHC (31.0-37.0) g/dL RDW (11.5-15.5) % Plt Count (150-450) k/uL MPV Neutrophils % % Lymphocytes % % Monocytes % % Eosinophils % % Basophils % % Neutrophils # (1.3-7.7) k/uL Lymphocytes # (1.0-4.8) k/uL Monocytes # (0-1.0) k/uL Eosinophils # (0-0.7) k/uL Basophils # (0-0.2) k/uL PT (9.0-12.0) sec INR (<1.2) APTT (22.0-30.0) sec Sodium 136 L (137-145) mmol/L Potassium 3.0 L (3.5-5.1) mmol/L Chloride 99 (98-107) mmol/L Carbon Dioxide 30 (22-30) mmol/L Anion Gap 7 mmol/L BUN 17 (7-17) mg/dL Creatinine 0.43 L (0.52-1.04) mg/dL Est GFR (CKD-EPI)AfAm >90 (>60 ml/min/1.73 sqM) Est GFR (CKD-EPI)NonAf >90 (>60 ml/min/1.73 sqM) Glucose 125 H (74-99) mg/dL POC Glucose (mg/dL) (75-99) mg/dL POC Glu Service Desk Team Lead ID Calcium 8.7 (8.4-10.2) mg/dL Total Bilirubin 0.8 (0.2-1.3) mg/dL AST 219 H (14-36) U/L ALT 54 H (4-34) U/L Alkaline Phosphatase 94 (38-126) U/L Ammonia <9 (<30) umol/L Troponin I 0.285 H* (0.000-0.034) ng/mL Total Protein 7.0 (6.3-8.2) g/dL Albumin 3.9 (3.5-5.0) g/dL Urine Color Urine Appearance (Clear) Urine pH (5.0-8.0) Ur Specific [place] (1.001-1.035) Urine Protein (Negative) Urine Glucose (UA) (Negative) Urine Ketones (Negative) Urine Blood (Negative) Urine Nitrite (Negative) Urine Bilirubin (Negative) Urine Urobilinogen (<2.0) mg/dL Ur Leukocyte Esterase (Negative) Urine RBC (0-5) /hpf Urine WBC (0-5) /hpf Ur Squamous Epith Cells (0-4) /hpf Urine Bacteria (None) /hpf Urine Mucus (None) /hpf Urine Opiates Screen (NotDetected) Ur Oxycodone Screen (NotDetected) Urine Methadone Screen (NotDetected) Ur Propoxyphene Screen (NotDetected) Ur Barbiturates Screen (NotDetected) U Tricyclic Antidepress (NotDetected) Ur Phencyclidine Scrn (NotDetected) Ur Amphetamines Screen (NotDetected) U Methamphetamines Scrn (NotDetected) U Benzodiazepines Scrn (NotDetected) Urine Cocaine Screen (NotDetected) U Marijuana (THC) Screen (NotDetected) Serum Alcohol <10 mg/dL 07/17/21 Range/Units 14:28 WBC (3.8-10.6) k/uL RBC (3.80-5.40) m/uL Hgb (11.4-16.0) gm/dL Hct (34.0-46.0) % MCV (80.0-100.0) fL MCH (25.0-35.0) pg MCHC (31.0-37.0) g/dL RDW (11.5-15.5) % Plt Count (150-450) k/uL MPV Neutrophils % % Lymphocytes % % Monocytes % % Eosinophils % % Basophils % % Neutrophils # (1.3-7.7) k/uL Lymphocytes # (1.0-4.8) k/uL Monocytes # (0-1.0) k/uL Eosinophils # (0-0.7) k/uL Basophils # (0-0.2) k/uL PT (9.0-12.0) sec INR (<1.2) APTT (22.0-30.0) sec Sodium (137-145) mmol/L Potassium (3.5-5.1) mmol/L Chloride (98-107) mmol/L Carbon Dioxide (22-30) mmol/L Anion Gap mmol/L BUN (7-17) mg/dL Creatinine (0.52-1.04) mg/dL Est GFR (CKD-EPI)AfAm (>60 ml/min/1.73 sqM) Est GFR (CKD-EPI)NonAf (>60 ml/min/1.73 sqM) Glucose (74-99) mg/dL POC Glucose (mg/dL) 123 H (75-99) mg/dL POC Glu Service Desk Team Lead ID Donald Gauthier Calcium (8.4-10.2) mg/dL Total Bilirubin (0.2-1.3) mg/dL AST (14-36) U/L ALT (4-34) U/L Alkaline Phosphatase (38-126) U/L Ammonia (<30) umol/L Troponin I (0.000-0.034) ng/mL Total Protein (6.3-8.2) g/dL Albumin (3.5-5.0) g/dL Urine Color Urine Appearance (Clear) Urine pH (5.0-8.0) Ur Specific [place] (1.001-1.035) Urine Protein (Negative) Urine Glucose (UA) (Negative) Urine Ketones (Negative) Urine Blood (Negative) Urine Nitrite (Negative) Urine Bilirubin (Negative) Urine Urobilinogen (<2.0) mg/dL Ur Leukocyte Esterase (Negative) Urine RBC (0-5) /hpf Urine WBC (0-5) /hpf Ur Squamous Epith Cells (0-4) /hpf Urine Bacteria (None) /hpf Urine Mucus (None) /hpf Urine Opiates Screen (NotDetected) Ur Oxycodone Screen (NotDetected) Urine Methadone Screen (NotDetected) Ur Propoxyphene Screen (NotDetected) Ur Barbiturates Screen (NotDetected) U Tricyclic Antidepress (NotDetected) Ur Phencyclidine Scrn (NotDetected) Ur Amphetamines Screen (NotDetected) U Methamphetamines Scrn (NotDetected) U Benzodiazepines Scrn (NotDetected) Urine Cocaine Screen (NotDetected) U Marijuana (THC) Screen (NotDetected) Serum Alcohol mg/dL Disposition Clinical Impression: NSTEMI (non-ST elevated myocardial infarction), Hypokalemia, Altered mental status Disposition: ADMITTED IP TO THIS HOSP Condition: Serious
[2021-07-17 14:32] LABS: Glucose,Whole Blood 123 mg/dL (75-99)
[2021-07-17 14:37] LABS: Basophils % (A) 0 %; Eosinophils # (A) 0.1 k/uL (0-0.7); Eosinophils % (A) 1 %; HCT 47.2 % (34.0-46.0); HGB 15.4 gm/dL (11.4-16.0); Lymphocytes # (A) 0.8 k/uL (1.0-4.8); Lymphocytes % (A) 12 %; MCH 32.3 pg (25.0-35.0); MCHC 32.7 g/dL (31.0-37.0); MCV 98.8 fL (80.0-100.0); Mean Platelet Volume 8.8; Monocytes # (A) 0.4 k/uL (0-1.0); Monocytes % (A) 6 %; Neutrophils # (A) 5.4 k/uL (1.3-7.7); Neutrophils % (A) 80 %; Platelet Count 171 k/uL (150-450); RBC 4.77 m/uL (3.80-5.40); WBC 6.8 k/uL (3.8-10.6)
[2021-07-17 14:45] LABS: INR 1.1 (<1.2); Partial Thromboplastin Time 24.5 sec (22.0-30.0); Prothrombin Time 12.2 sec (9.0-12.0)
[2021-07-17 15:02] LABS: ALT 54 U/L (4-34); AST 219 U/L (14-36); African American GFR (CKD) >90 (>60 ml/min/1.73 sqM); Albumin 3.9 g/dL (3.5-5.0); Alcohol <10 mg/dL; Alkaline Phosphatase 94 U/L (38-126); Anion Gap 7 mmol/L; Blood Urea Nitrogen 17 mg/dL (7-17); Calcium 8.7 mg/dL (8.4-10.2); Carbon Dioxide 30 mmol/L (22-30); Chloride 99 mmol/L (98-107); Glucose 125 mg/dL (74-99); Non-African American GFR(CKD) >90 (>60 ml/min/1.73 sqM); Sodium 136 mmol/L (137-145); Total Bilirubin 0.8 mg/dL (0.2-1.3)
[2021-07-17 15:31] LABS: Appearance,Urine Clear (Clear); Bacteria,Urine Rare /hpf; Bilirubin,Urine Negative (Negative); Blood,Urine Small (Negative); Color,Urine Yellow; Glucose,Urine (UA) Negative (Negative); Ketones,Urine 2+ (Negative); Leukocyte Esterase,Urine Negative (Negative); Mucus,Urine Many /hpf; Nitrite,Urine Negative (Negative); PH, Urine 6.5 (5.0-8.0); Protein,Urine 1+ (Negative); RBC,Urine 35 /hpf (0-5); Specific Gravity,Urine 1.022 (1.001-1.035); Squamous Epithelial Cell,Urine <1 /hpf (0-4); Urobilinogen,Urine <2.0 mg/dL (<2.0); WBC,Urine 2 /hpf (0-5)
[2021-07-17 15:50] LABS: Amphetamine Screen,Urine Not Detected (NotDetected); Barbiturate Screen,Urine Detected (NotDetected); Benzodiazepines Screen,Urine Not Detected (NotDetected); Cocaine Screen,Urine Not Detected (NotDetected); Methadone Screen, Urine Not Detected (NotDetected); Opiate Screen,Urine Detected (NotDetected); Oxycodone Screen, Urine Not Detected (NotDetected); Phencyclidine Screen,Urine Not Detected (NotDetected); Tricyclic Antidepressant,Urine Detected (NotDetected); Urn Cannabinoid Scrn Not Detected (NotDetected)
--- NOTE | 2021-07-17 16:24 | CT ---
EXAMINATION TYPE: CT brain wo con DATE OF EXAM: 07/17/2021 COMPARISON: CT dated 11/02/2018 HISTORY: Altered mental status. CT DLP: 1081.8 mGycm Automated exposure control for dose reduction was used. TECHNIQUE: CT scan of the brain is performed without IV contrast administration. FINDINGS: Brain volume loss changes, likely age-related. Bilateral cerebral white matter hypodensities, likely representing mild chronic microvascular ischemic changes. Scattered arterial atherosclerotic calcific ations. Bilateral basal ganglia hypodensities, possibly ischemic. No acute intracranial hemorrhage. No gross acute cortical infarct. No midline shift, herniation or ventriculomegaly. Unremarkable altman-white matter differentiation, basal cisterns, sella and CP angles. No gross space-o ccupying lesion, vasogenic edema or mass effect. Unremarkable orbits. Mild mucosal thickening of the left maxillary sinus. Clear mastoid air cells. Un remarkable calvarial bones. IMPRESSION: No acute intracranial hemorrhage or gross acute cortical infarct. Incidental findings as described ab cesare.
--- NOTE | 2021-07-17 16:37 | XR ---
EXAMINATION TYPE: XR chest 2V DATE OF EXAM: 07/17/2021 4:30 PM COMPARISON:Chest radiographs from 11/02/2018. CTA neck same day. TECHNIQUE: XR chest 2V Frontal view of the chest. CLINICAL INDICATION:Female, 66 years old with history of altered mental status; FINDINGS: Lungs/Pleura: There is a similar elevated left diaphragm. Similar scattered increased interstitial op acities most pronounced in the right. Increased lucency at the lung apices better appreciated on CT. There is no evidence of pleural effusion, focal consolidation, or pneumothorax. Pulmonary vascularity: Unremarkable. Heart/mediastinum: Cardiomediastinal silhouette is unremarkable. Musculoskeletal: No acute osseous pathology. IMPRESSION: 1. Similar chronic interstitial changes in the right greater than left. 2. Similar elevated left diaphragm. 3. COPD changes.
[2021-07-17] MEDS ORDERED: POTASSIUM CHLORIDE 10 MEQ in WATER FOR INJECTION 1 100ML.BAG IVPB STA (16:41)
[2021-07-17] MEDS ORDERED: POTASSIUM CHLORIDE ER 20 MEQ TAB.ER PO STA (16:43)
--- NOTE | 2021-07-17 17:05 | CT ---
EXAMINATION TYPE: CT angio head neck DATE OF EXAM: 07/17/2021 HISTORY: Altered mental status. COMPARISON: Nonenhanced CT brain performed earlier same day CT DLP: 322.2 mGycm. Automated Exposure Control for Dose Reduction was Utilized. TECHNIQUE: CTA scan of the neck is performed with IV Contrast, patient injected with 65 mL of Isovue 370, axial images are obtained, coronal and sagittal reformatted images are reviewed. 3D reconstruct ed images are created on an independent workstation and reviewed. FINDINGS: Carotid/Vascular Structures: Bovine aortic arch. Scattered arterial atherosclerotic calcification and tortuosity. Ectatic proximal portion of the internal carotid artery, seen bilaterally. Questionable small 4 mm saccular aneurysm versus infundibulum arising from the inferior aspect of the supraclinoid portion of the left internal carotid artery. Otherwise normal caliber and enhancement of the major n dulce arteries and intracranial arteries without significant stenosis, occlusion, dissection, other ane urysm or AV malformation. Other: COPD changes are seen in the lung apex with suspected infiltration of the right lung apex, ple ase correlate clinically. Degenerative changes of the cervical spine. Anterolisthesis of C3 over C4. IMPRESSION: No significant arterial stenosis, occlusion, dissection or other acute arterial abnormali ty. Questionable small 4 mm saccular aneurysm versus infundibulum of the supraclinoid portion of the left internal carotid artery. Other findings as described above.
[2021-07-17] MEDS ORDERED: HEPARIN SODIUM 1,000 UN/ML (10ML VL) IV PRN (17:15)
[2021-07-17] MEDS ORDERED: HEPARIN SODIUM 1,000 UN/ML (10ML VL) IV ONE (17:15)
[2021-07-17] MEDS ORDERED: HEPARIN SOD,PORK IN 0.45% NACL 25,000 UNIT in 0.45% NACL 1 250ML.BAG IV SCH (17:30)
[2021-07-17] MEDS: ATORVASTATIN 20 MG TAB PO SCH (18:10)
[2021-07-17] MEDS ORDERED: IPRATROPIUM-ALBUTEROL 3 ML NEB INHALATION PRN (20:30)
[2021-07-17] MEDS ORDERED: NON FORMULARY DRUG (Ipratropium/Albuter 20-100mcg 120 PUFF Each) INHALATION PRN (20:30)
[2021-07-17] MEDS ORDERED: IBUPROFEN 800 MG TAB PO PRN (20:30)
[2021-07-17] MEDS ORDERED: LORazepam 1 MG TAB PO PRN (20:30)
[2021-07-17] MEDS ORDERED: ATORVASTATIN 20 MG TAB PO SCH (21:00)
[2021-07-17] MEDS: CYCLOBENZAPRINE 10 MG TAB PO SCH (22:10)
[2021-07-17] MEDS: MORPHINE SULFATE ER 60 MG TABLET PO SCH (22:10)
[2021-07-17] MEDS: PREGABALIN 75 MG CAP PO SCH (22:10)
[2021-07-17] MEDS: AMITRIPTYLINE HCL 50 MG TAB PO SCH (22:10)
[2021-07-17] MEDS: SERTRALINE 100 MG TAB PO SCH (22:10)
[2021-07-18] MEDS ORDERED: SYMBICORT 160-4.5 MCG INHALER INHALATION SCH (08:00)
[2021-07-18 08:18] LABS: Basophils % (A) 0 %; Eosinophils % (A) 0 %; HCT 50.9 % (34.0-46.0); HGB 16.8 gm/dL (11.4-16.0); INR 1.2 (<1.2); Lymphocytes # (A) 1.4 k/uL (1.0-4.8); Lymphocytes % (A) 15 %; MCH 32.9 pg (25.0-35.0); MCHC 32.9 g/dL (31.0-37.0); MCV 99.8 fL (80.0-100.0); Macrocytosis Slight; Mean Platelet Volume 8.7; Monocytes # (A) 0.7 k/uL (0-1.0); Monocytes % (A) 8 %; Neutrophils # (A) 6.9 k/uL (1.3-7.7); Neutrophils % (A) 76 %; Platelet Count 180 k/uL (150-450); Prothrombin Time 12.5 sec (9.0-12.0); WBC 9.2 k/uL (3.8-10.6)
[2021-07-18] MEDS ORDERED: LORATADINE 10 MG TAB PO SCH (09:00)
[2021-07-18] MEDS: PANTOPRAZOLE 40 MG TABLET PO SCH (09:40)
[2021-07-18] MEDS: PREGABALIN 75 MG CAP PO SCH (09:40)
[2021-07-18] MEDS: CYCLOBENZAPRINE 10 MG TAB PO SCH (09:40)
[2021-07-18] MEDS: ASPIRIN 325 MG TAB PO SCH (09:40)
[2021-07-18] MEDS: ATORVASTATIN 20 MG TAB PO SCH (09:40)
[2021-07-18] MEDS: SERTRALINE 100 MG TAB PO SCH ×2 (09:43→21:19)
[2021-07-18] MEDS: MONTELUKAST 10 MG TAB PO SCH (09:43)
[2021-07-18] MEDS: FOLIC ACID 1 MG TAB PO SCH (09:43)
[2021-07-18] MEDS: MORPHINE SULFATE ER 60 MG TABLET PO SCH (10:24)
[2021-07-18] MEDS ORDERED: CYCLOBENZAPRINE 10 MG TAB PO PRN (10:35)
[2021-07-18 10:45] LABS: Chol/HDL Ratio 4.02 Ratio; LDL Cholesterol,Calculated 121.8 mg/dL (0.0-131.0)
[2021-07-18] MEDS: BUDESONIDE 1 MG/2 ML NEBU INHALATION SCH ×2 (11:28→19:50)
[2021-07-18] MEDS: IPRATROPIUM-ALBUTEROL 3 ML NEB INHALATION SCH ×3 (11:28→19:50)
[2021-07-18 11:37] VITALS: BMI 26.6
--- NOTE | 2021-07-18 11:38 | P.CNNES ---
History of Present Illness Consult date: 07/18/21 Requesting physician: Soto Thomas Reason for Consult: altered mental status History of Present Illness: This is a 66-year-old woman with medical history of heart failure, COPD, hyperlipidemia, chronic ongoing tobacco, anxiety, depression use who presented emergency department on 07/17/2021 for altered mental status. Patient is unable to provide history of what brought her to the hospital. History was obtained from medical record. Per the ED note is seems the patient was brought by EMS as a bystander since she was found wondering around outside. Patient stated that she does not know what happened yesterday. Patient denies of any alcohol use or any illicit drug use. Denies of any history of stroke. She states that she smokes too much in her own words. She denies of any headache, nausea, vomiting, any fever. I spoke with the primary attending (Dr. Fuchs) and he stated she has chronic pain and that is why she is on a lot of pain medication possibly being prescribed by her pain specialist. Some of the patient's home medication consist of Zoloft 100 mg 1 tablet twice a day, Lyrica 150 mg 1 tablet twice a day, morphine 60 mg 1 tablet twice a day, Ativan 1 mg 4 times a day as needed, [place] 103 25 1 tablet twice a day as needed, folic acid 1 mg daily, Flexeril 10 mg 1 tablet 3 times a day, Fioricet, Elavil 100 mg daily at bedtime, Zocor Some of the workup in the hospital consisted of: Patient has been afebrile during this admission. Initial white blood cells 6.8 thousand, and repeat it is also normal Initial serum glucose 125, BUN 17, creatinine is 0.43, AST of 2-219 but ALTs 54. Ammonia level is less than 9, calcium is 8.7. Urinalysis is negative for urinary tract infection. Urine drug screen is positive for opiates, barbiturates and tricyclics. Serum alcohol was less than 10. Troponin is on presentation his appointment 285 and the last one is up 0.252. CT of the head is reported as no acute intracranial hemorrhage or gross acute cortical infarct. I personally reviewed the CT of the head and there is no acute or subacute ischemia and there is no interpretable hemorrhage CT angiography of the head and neck was reported as no significant arterial stenosis, occlusion, dissection or other acute arterial abnormality. Questionable small 4 mm saccular aneurysm versus infundibular of the supraclinoid portion of the left internal carotid artery. Review of Systems Review of system is limited but the prone positive and negative as per HPI Past Medical History Past Medical History: Heart Failure, COPD, Hyperlipidemia Additional Past Medical History / Comment(s): son states possible pill substance abuse History of Any Multi-Drug Resistant Organisms: None Reported Past Surgical History: Orthopedic Surgery Past Psychological History: Anxiety, Depression Smoking Status: Unknown if ever smoked Past Alcohol Use History: None Reported Past Drug Use History: None Reported Medications and Allergies Home Medications Medication Instructions Recorded Confirmed Type Amitriptyline HCl [Elavil] 100 mg PO HS 11/02/18 07/17/21 History Ibuprofen [Motrin] 800 mg PO TID PRN 11/02/18 07/17/21 History Montelukast [Singulair] 10 mg PO DAILY 11/02/18 07/17/21 History Pantoprazole Sodium [Protonix] 40 mg PO DAILY 11/02/18 07/17/21 History Pregabalin [Lyrica] 150 mg PO BID 11/02/18 07/17/21 History Sertraline [Zoloft] 100 mg PO BID 11/02/18 07/17/21 History Simvastatin [Zocor] 40 mg PO HS 11/02/18 07/17/21 History Butalb/APAP/Caff 50-325-40Mg 1 - 2 tab PO Q6H PRN 07/17/21 07/17/21 History [Fioricet 50-325-40] Cyclobenzaprine [Flexeril] 10 mg PO TID 07/17/21 07/17/21 History Fluticasone/Salmeterol [Advair Hfa 1 puff INHALATION RT-BID 07/17/21 07/17/21 History 230-21 Mcg Inhaler] Folic Acid 1 mg PO DAILY 07/17/21 07/17/21 History HYDROcodone/APAP 10-325MG [[place] 1 tab PO BID PRN 07/17/21 07/17/21 History 10-325] Ipratropium-Albuterol Nebulize 3 ml INHALATION RT-Q6H PRN 07/17/21 07/17/21 History [Duoneb 0.5 mg-3 mg/3 ml Soln] Ipratropium/Albuter 20-100Mcg 2 puff INHALATION RT-Q6H PRN 07/17/21 07/17/21 History [Combivent Respimat 20-100Mcg Inhaler] LORazepam [Ativan] 1 mg PO QID PRN 07/17/21 07/17/21 History Loratadine [Claritin] 10 mg PO DAILY 07/17/21 07/17/21 History Lubiprostone [Amitiza] 24 mcg PO DAILY 07/17/21 07/17/21 History Morphine Sulfate ER [Ms Contin] 60 mg PO BID 07/17/21 07/17/21 History Allergies Allergy/AdvReac Type Severity Reaction Status Date / Time etanercept [From Enbrel] Allergy Unknown Verified 07/17/21 16:36 sulfamethoxazole Allergy Unknown Verified 07/17/21 16:36 [From Bactrim] trimethoprim [From Bactrim] Allergy Unknown Verified 07/17/21 16:36 Physical Examination - Vital Signs Vital Signs: Vital Signs Temp Pulse Pulse Resp BP BP Pulse Ox 07/18/21 08:00 98.5 F 92 16 153/77 94 L 07/18/21 04:00 98.6 F 95 16 153/85 91 L 07/18/21 02:00 98 20 07/17/21 23:47 98 20 157/100 91 L 07/17/21 20:15 98.3 F 91 20 156/87 97 07/17/21 17:18 96 20 156/99 99 07/17/21 15:52 89 20 150/92 98 07/17/21 14:14 98.9 F 07/17/21 14:11 99 22 157/88 100 Intake and Output 07/17/21 07/18/21 07/18/21 22:59 06:59 14:59 Other: # Voids 2 1 # Bowel Movements 1 Weight 74.843 kg GENERAL: The patient is lying in bed and is not in acute distress. HENT: Supple neck and no nuchal rigidity. CHEST: The heart rate is regular rate rhythm. No murmurs to auscultation. No carotid bruit bilaterally. LUNG: Clear to auscultation bilaterally no wheezing noted throughout. Not labored breathing. ABDOMEN/GI: Bowel sounds present in all 4 quadrants. No tenderness to palpation throughout. NEUROLOGICAL: Higher mental function: The patient is awake, alert, oriented and time but not place. Patient is following simple commands. It was hard to assess language since patient in short phrases but no paraphrasic errors or any wernicke. Intact repetition. No neglect. Cranial nerves: The pupils are round, equal and reactive to light. Visual linton are hard to assess since patient kept on saying 2 fingers even though I had different fingers. Extraocular movement is intact no nystagmus is noted. Facial sensation is normal to touch throughout. The facial strength is normal throughout. Hearing is mildly decreased bilaterally to hand rub. Tongue is midline and moved [id number] without any difficulty. No dysarthria is noted. Shoulder shrug is normal bilaterally. Motor: Gait is deferred. The strength is 4+ to 5- throughout. Normal tone and bulk. Cerebellum: Normal finger to nose heel to pizano bilaterally. Sensation: Sensation is normal to touch throughout. Reflexes (right/left): 1+ throughout. Plantars are downgoing bilaterally. Results - Laboratory Findings CBC and BMP: 07/18/21 07:47 07/17/21 14:25 Abnormal Lab Findings: Abnormal Labs 07/17/21 07/17/21 07/17/21 14:25 14:25 14:25 Hgb Hct 47.2 H Lymphocytes # 0.8 L PT 12.2 H INR Sodium Potassium Creatinine Glucose POC Glucose (mg/dL) AST ALT Troponin I Urine Protein 1+ H Urine Ketones 2+ H Urine Blood Small H Urine RBC 35 H Urine Bacteria Rare H Urine Mucus Many H Urine Opiates Screen Detected H Ur Barbiturates Screen Detected H U Tricyclic Antidepress Detected H 07/17/21 07/17/21 07/17/21 14:25 14:25 14:28 Hgb Hct Lymphocytes # PT INR Sodium 136 L Potassium 3.0 L Creatinine 0.43 L Glucose 125 H POC Glucose (mg/dL) 123 H AST 219 H ALT 54 H Troponin I 0.285 H* Urine Protein Urine Ketones Urine Blood Urine RBC Urine Bacteria Urine Mucus Urine Opiates Screen Ur Barbiturates Screen U Tricyclic Antidepress 07/17/21 07/17/21 07/18/21 17:59 20:48 07:47 Hgb 16.8 H Hct 50.9 H Lymphocytes # PT INR Sodium Potassium Creatinine Glucose POC Glucose (mg/dL) AST ALT Troponin I 0.271 H* 0.252 H* Urine Protein Urine Ketones Urine Blood Urine RBC Urine Bacteria Urine Mucus Urine Opiates Screen Ur Barbiturates Screen U Tricyclic Antidepress 07/18/21 07:47 Hgb Hct Lymphocytes # PT 12.5 H INR 1.2 H Sodium Potassium Creatinine Glucose POC Glucose (mg/dL) AST ALT Troponin I Urine Protein Urine Ketones Urine Blood Urine RBC Urine Bacteria Urine Mucus Urine Opiates Screen Ur Barbiturates Screen U Tricyclic Antidepress Assessment and Plan Assessment: Encephalopathy of unknown etiology but seems a component of toxic metabolic encephalopathy (currently is AOX2) but no focal deficits. Patient is afebrile and no leukocytosis which does not seem to be suggestive of meningeal encephalitis Transient global amnesia Elevated LFT's (AST 219 and ALT 54) Elevated troponin History of heart failure COPD Chronic pain on Polypharmacy Chronic ongoing tobacco use. Plan: I ordered a routine EEG. I'll not start the patient on antiepileptic drugs unless there is epileptiform discharges or seizure on the EEG Ordered MRI Brain w/ and w/o, vitamin B12, folate, TSH. Every 4 hours neuro checks 2-D echo, lipid panel is ordered and is pending PT OT is consulted Cardiology team is consulted for elevated troponin. I feel patient is on polypharmacy and will defer modification of medication to the primary team. Patient was counseled on tobacco cessation for 3 minutes. We'll defer the rest of the medical management to the primary team For DVT prophylaxis: on Enoxaparin. The plan is discussed with patient, her primary attending and her nurse. Thank you for the consultation. Kendrick Stock M.D. Neuro-Hospitalist Time with Patient: Greater than 30
--- NOTE | 2021-07-18 11:58 | ECHOF ---
Referral Reason:elevated trops, assess lv function MEASUREMENTS -------- HEIGHT: 167.6 cm WEIGHT: 74.8 kg BP: RVIDd: 3.0 cm (< 3.3) IVSd: 1.3 cm (0.6 - 1.1) LVIDd: 4.0 cm (3.9 - 5.3) LVPWd: 1.3 cm (0.6 - 1.1) IVSs: 1.8 cm LVIDs: 2.7 cm LVPWs: 1.5 cm LA Diam: 3.1 cm (2.7 - 3.8) Ao Diam: 2.9 cm (2.0 - 3.7) AV Cusp: 2.0 cm (1.5 - 2.6) MV EXCURSION: 13.015 mm (> 18.000) MV EF SLOPE: 18 mm/s (70 - 150) EPSS: 0.3 cm MV E Kobe: 0.52 m/s MV DecT: 421 ms MV A Kobe: 1.21 m/s MV E/A Ratio: 0.43 RAP: 5.00 mmHg RVSP: 28.81 mmHg FINDINGS -------- Sinus rhythm. This was a technically adequate study. The left ventricular size is normal. There is mild concentric left ventricular hypertrophy. Overa ll left ventricular systolic function is normal with, an EF between 55 - 60 %. The right ventricle is normal in size. The left atrium is normal in size. The right atrial size is normal. Interatrial and interventricular septum intact. The aortic valve is trileaflet, and appears structurally normal. No aortic stenosis or regurgitation. The mitral valve leaflets are mildly thickened. Mild mitral regurgitation is present. The tricuspid valve appears structurally normal. Mild tricuspid regurgitation present. Right vent ricular systolic pressure is normal at < 35 mmHg. There is no pulmonic regurgitation present. The aortic root size is normal. Normal inferior vena cava with normal inspiratory collapse consistent with estimated right atrial pre ssure of 5 mmHg. There is no pericardial effusion. CONCLUSIONS -------- 1. There is mild concentric left ventricular hypertrophy. 2. Overall left ventricular systolic function is normal with, an EF between 55 - 60 %. 3. The aortic valve is trileaflet, and appears structurally normal. No aortic stenosis or regurgitati on. 4. Mild mitral regurgitation is present. 5. Mild tricuspid regurgitation present. 6. There is no pericardial effusion. BOW MAKING MACHINE OPERATOR: Krissy Briones RDCS
[2021-07-18] MEDS: ENOXAPARIN 40 MG/0.4 ML SYRINGE SQ SCH (12:34)
[2021-07-18] MEDS ORDERED: LORazepam 2 MG/ML INJ IV STA (13:09)
[2021-07-18] MEDS ORDERED: levETIRAcetam IV 1,500 MG in SALINE 1 100ML.BAG IVPB STA (13:10)
[2021-07-18] MEDS ORDERED: LORazepam 2 MG/ML INJ IV PRN (13:22)
[2021-07-18] MEDS: SODIUM CHLORIDE 0.9% 1,000 ML IV SCH (13:54)
[2021-07-18] MEDS ORDERED: PROCHLORPERAZINE 5 MG TAB PO PRN (16:41)
[2021-07-18] MEDS ORDERED: LACTULOSE 20 GM/30 ML CUP PO PRN (16:41)
[2021-07-18] MEDS ORDERED: CALCIUM CARBONATE 500 MG CHEWABLE PO PRN (16:41)
[2021-07-18] MEDS ORDERED: NALOXONE 0.4 MG/ML 1 ML VIAL IV PRN (16:41)
--- NOTE | 2021-07-18 16:42 | P.HPIM ---
History of Present Illness H&P Date: 07/18/21 Chief Complaint: Short of breath This is a 66-year-old patient who follows with visiting physicians . Patient presented to the ER with altered mental status. Patient is brought in by the EMS as a bystander found the patient wandering around outside. Patient is awake. She is able to the ER physician on name but was unable to tell them that she is on her age. She was looking around. Getting 2 different sandals and in the nightgown. Not able to answer anymore questions. During my questioning patient appears to be slightly distant. Even though awake. Not seeming to be very alert. I discussed this with the neurologist who also had trouble getting more history out of the patient. Patient does complain or shortness of breath. Slight cough. No fever no chills. Review of systems: GEN.: Tired EYES: None HEENT: None NECK: None RESPIRATORY: Short of breath CARDIOVASCULAR: [No chest pain GASTROINTESTINAL: None GENITOURINARY: None MUSCULOSKELETAL: None LYMPHATICS: None HEMATOLOGICAL: None PSYCHIATRY: None NEUROLOGICAL: No focal weakness. No change in speech. Past medical history to include: Hyperlipidemia, COPD, CHF, anxiety, depression, chronic low back pain being followed by Dr. Mcneil Social history: Lives alone. Smokes a pack a day. Denies alcohol. Denies any drugs. Family history: Reviewed, noncontributory to presentation Physical examination: VITAL SIGNS: 98.9, 99, 22, 157/88, 100% on 6 L GENERAL: BMI 26.6, sitting up in bed, awake, but distant appearing. EYES: Pupils equal. Conjunctiva normal. HEENT: External appearance of nose and ears normal, oral cavity grossly normal. NECK: JVD not raised; masses not palpable. HEART: First and second heart sounds are normal; no edema. LUNGS: Respiratory rate increased; decreased breath sounds prolonged expiration. ABDOMEN: Soft, nontender, liver spleen not palpable, no masses palpable. PSYCH: [Patient is only answering questions slowly. Cannot tell me when she started smoking. Slow to answer questions L. MUSCULOSKELETAL: Loss of subcutaneous fat and muscle mass. Evidence of OA NEUROLOGICAL: Cranial nerves grossly intact; no facial asymmetry, power and sensation grossly intact. LYMPHATICS: No lymph nodes palpable in the axilla and neck INVESTIGATIONS, reviewed in the clinical context: White count 6.8 hemoglobin 15.4 platelets 171 sodium 136 potassium 3 BUN 17 creatinine 0.73 blood glucose 125 AST 219 ALT 54 Troponin I 0.0285, 0.271, 0.232 LDL 121 UA ketones 2+. Protein 1+. Urine drug screen positive for opiates, barbiturates, tricyclic antidepressants EKG tracing personally reviewed by me-sinus rhythm. Nonspecific ST segment changes. PVC. CT brain: No acute changes. Chest x-ray film: Chronic interstitial changes. COPD. CT on September head and neck: No significant stenosis. 2-D echocardiogram: EF 55-60%. Assessment and plan: -This is a patient was found wandering outside in the nitro. wearing sandals of 2 different kind. In the ER patient was somewhat distant appearing. Really could not answer questions. Even though awake. It may be noted that patient is on significant medications that may affect sensorium including Lyrica 150 mg twice daily, MS Contin 60 mg twice daily, Flexeril, and Claritin. In addition to Fioricet. Discussion we underlying metabolic encephalopathy. Patient denies any active pain right now. Will cut back Lyrica 200 mg twice a day. Cutback MS Contin to 45 mg twice a day. Will DC Claritin. -Chronic low back pain with herniated disc MS Contin will be cut back to 45 mg twice a day. Use [place] 10 twice a day. -Acute COPD exacerbation in a current smoker DuoNeb 4 times a day. Pulmicort 1 mg twice a day -Hyperlipidemia 6 Zocor 40 mg daily at bedtime -GERD Protonix 40 mg a day -Hypokalemia, replace -Rule out seizures EEG -Chronic nicotine dependence, cigarette smoker Nicotine patch -Troponin leak. No rise and fall patent. Possibly from hemodynamic mismatch. No chest pain. -Abnormal LFTs. Check acute hepatitic panel. Liver ultrasound EEG. MRI brain. Ultrasound liver. DuoNeb. Nebulized steroids. Consultation to neurology. Cutback doses of Lyrica. Stop Claritin. Cutback dose of MS Contin. Follow closely. Nicotine patch. Acute hepatitis panel Given the complexity and severity of patient's condition expect the patient to be in the hospital at least for 2 overnights Past Medical History Past Medical History: Heart Failure, COPD, Hyperlipidemia Additional Past Medical History / Comment(s): son states possible pill substance abuse History of Any Multi-Drug Resistant Organisms: None Reported Past Surgical History: Orthopedic Surgery Past Psychological History: Anxiety, Depression Smoking Status: Unknown if ever smoked Past Alcohol Use History: None Reported Past Drug Use History: None Reported Medications and Allergies Home Medications Medication Instructions Recorded Confirmed Type Amitriptyline HCl [Elavil] 100 mg PO HS 11/02/18 07/17/21 History Ibuprofen [Motrin] 800 mg PO TID PRN 11/02/18 07/17/21 History Montelukast [Singulair] 10 mg PO DAILY 11/02/18 07/17/21 History Pantoprazole Sodium [Protonix] 40 mg PO DAILY 11/02/18 07/17/21 History Pregabalin [Lyrica] 150 mg PO BID 11/02/18 07/17/21 History Sertraline [Zoloft] 100 mg PO BID 11/02/18 07/17/21 History Simvastatin [Zocor] 40 mg PO HS 11/02/18 07/17/21 History Butalb/APAP/Caff 50-325-40Mg 1 - 2 tab PO Q6H PRN 07/17/21 07/17/21 History [Fioricet 50-325-40] Cyclobenzaprine [Flexeril] 10 mg PO TID 07/17/21 07/17/21 History Fluticasone/Salmeterol [Advair Hfa 1 puff INHALATION RT-BID 07/17/21 07/17/21 History 230-21 Mcg Inhaler] Folic Acid 1 mg PO DAILY 07/17/21 07/17/21 History HYDROcodone/APAP 10-325MG [[place] 1 tab PO BID PRN 07/17/21 07/17/21 History 10-325] Ipratropium-Albuterol Nebulize 3 ml INHALATION RT-Q6H PRN 07/17/21 07/17/21 History [Duoneb 0.5 mg-3 mg/3 ml Soln] Ipratropium/Albuter 20-100Mcg 2 puff INHALATION RT-Q6H PRN 07/17/21 07/17/21 History [Combivent Respimat 20-100Mcg Inhaler] LORazepam [Ativan] 1 mg PO QID PRN 07/17/21 07/17/21 History Loratadine [Claritin] 10 mg PO DAILY 07/17/21 07/17/21 History Lubiprostone [Amitiza] 24 mcg PO DAILY 07/17/21 07/17/21 History Morphine Sulfate ER [Ms Contin] 60 mg PO BID 07/17/21 07/17/21 History Allergies Allergy/AdvReac Type Severity Reaction Status Date / Time etanercept [From Enbrel] Allergy Unknown Verified 07/17/21 16:36 sulfamethoxazole Allergy Unknown Verified 07/17/21 16:36 [From Bactrim] trimethoprim [From Bactrim] Allergy Unknown Verified 07/17/21 16:36 Physical Exam Vitals: Vital Signs Temp Pulse Pulse Resp BP BP Pulse Ox 07/18/21 04:00 98.6 F 95 16 153/85 91 L 07/18/21 02:00 98 20 07/17/21 23:47 98 20 157/100 91 L 07/17/21 20:15 98.3 F 91 20 156/87 97 07/17/21 17:18 96 20 156/99 99 07/17/21 15:52 89 20 150/92 98 07/17/21 14:14 98.9 F 07/17/21 14:11 99 22 157/88 100 Intake and Output 07/17/21 07/18/21 07/18/21 22:59 06:59 14:59 Other: # Voids 2 1 # Bowel Movements 1 Weight 74.843 kg Results CBC & Chem 7: 07/18/21 07:47 07/17/21 14:25 Labs: Abnormal Lab Results - Last 24 Hours (Table) 07/17/21 07/17/21 07/17/21 Range/Units 14:25 14:25 14:25 Hgb (11.4-16.0) gm/dL Hct 47.2 H (34.0-46.0) % Lymphocytes # 0.8 L (1.0-4.8) k/uL PT 12.2 H (9.0-12.0) sec INR (<1.2) Sodium (137-145) mmol/L Potassium (3.5-5.1) mmol/L Creatinine (0.52-1.04) mg/dL Glucose (74-99) mg/dL POC Glucose (mg/dL) (75-99) mg/dL AST (14-36) U/L ALT (4-34) U/L Troponin I (0.000-0.034) ng/mL Urine Protein 1+ H (Negative) Urine Ketones 2+ H (Negative) Urine Blood Small H (Negative) Urine RBC 35 H (0-5) /hpf Urine Bacteria Rare H (None) /hpf Urine Mucus Many H (None) /hpf Urine Opiates Screen Detected H (NotDetected) Ur Barbiturates Screen Detected H (NotDetected) U Tricyclic Antidepress Detected H (NotDetected) 07/17/21 07/17/21 07/17/21 Range/Units 14:25 14:25 14:28 Hgb (11.4-16.0) gm/dL Hct (34.0-46.0) % Lymphocytes # (1.0-4.8) k/uL PT (9.0-12.0) sec INR (<1.2) Sodium 136 L (137-145) mmol/L Potassium 3.0 L (3.5-5.1) mmol/L Creatinine 0.43 L (0.52-1.04) mg/dL Glucose 125 H (74-99) mg/dL POC Glucose (mg/dL) 123 H (75-99) mg/dL AST 219 H (14-36) U/L ALT 54 H (4-34) U/L Troponin I 0.285 H* (0.000-0.034) ng/mL Urine Protein (Negative) Urine Ketones (Negative) Urine Blood (Negative) Urine RBC (0-5) /hpf Urine Bacteria (None) /hpf Urine Mucus (None) /hpf Urine Opiates Screen (NotDetected) Ur Barbiturates Screen (NotDetected) U Tricyclic Antidepress (NotDetected) 07/17/21 07/17/21 07/18/21 Range/Units 17:59 20:48 07:47 Hgb 16.8 H (11.4-16.0) gm/dL Hct 50.9 H (34.0-46.0) % Lymphocytes # (1.0-4.8) k/uL PT (9.0-12.0) sec INR (<1.2) Sodium (137-145) mmol/L Potassium (3.5-5.1) mmol/L Creatinine (0.52-1.04) mg/dL Glucose (74-99) mg/dL POC Glucose (mg/dL) (75-99) mg/dL AST (14-36) U/L ALT (4-34) U/L Troponin I 0.271 H* 0.252 H* (0.000-0.034) ng/mL Urine Protein (Negative) Urine Ketones (Negative) Urine Blood (Negative) Urine RBC (0-5) /hpf Urine Bacteria (None) /hpf Urine Mucus (None) /hpf Urine Opiates Screen (NotDetected) Ur Barbiturates Screen (NotDetected) U Tricyclic Antidepress (NotDetected) 07/18/21 Range/Units 07:47 Hgb (11.4-16.0) gm/dL Hct (34.0-46.0) % Lymphocytes # (1.0-4.8) k/uL PT 12.5 H (9.0-12.0) sec INR 1.2 H (<1.2) Sodium (137-145) mmol/L Potassium (3.5-5.1) mmol/L Creatinine (0.52-1.04) mg/dL Glucose (74-99) mg/dL POC Glucose (mg/dL) (75-99) mg/dL AST (14-36) U/L ALT (4-34) U/L Troponin I (0.000-0.034) ng/mL Urine Protein (Negative) Urine Ketones (Negative) Urine Blood (Negative) Urine RBC (0-5) /hpf Urine Bacteria (None) /hpf Urine Mucus (None) /hpf Urine Opiates Screen (NotDetected) Ur Barbiturates Screen (NotDetected) U Tricyclic Antidepress (NotDetected)
[2021-07-18] MEDS: NICOTINE 21MG/24HR PATCH TRANSDERM SCH (17:05)
--- NOTE | 2021-07-18 17:47 | EEG ---
ELECTROENCEPHALOGRAM REPORT DATE OF SERVICE: 07/19/2021. CLINICAL HISTORY: This is a 66-year-old woman with altered mental status. The video EEG is obtained to evaluate for seizure epileptiform activity. Relevant medication: Lyrica, Ativan p.r.n. EEG TYPE: A routine 21-channel EEG is performed with video using the 10/20 electrode system. DESCRIPTION: Wakefulness is obtained. During awake state the background consists of 7.5 to 8.5 hertz activity. At times the background consists of 6 to 7 hertz intermixed with delta activity. There is no physiological stage II activity. Interictal and ictal: There is occasional sharp and slow waves over the frontal derivative (appears right frontal). Otherwise, no clear seizure is noted. ACTIVATION PROCEDURE: Photic stimulation does not evoke a posterior driving response. There is no abnormality during the photic stimulation. Hyperventilation is not performed. CLINICAL INTERPRETATION: This is an abnormal routine EEG. The background slowing is suggestive of mild encephalopathy. The epileptiform discharge over the frontal (appears right) which increases the risk of seizure. Otherwise there is no focal slowing or seizure seen on this study. Clinical correlation is recommended. Recommend a 2-1/2-hour EEG. MMODL / IJN: [id number] / MTDD
[2021-07-18] MEDS ORDERED: levETIRAcetam 500 MG TAB PO SCH (21:00)
[2021-07-18] MEDS: PREGABALIN 100 MG CAP PO SCH (21:18)
[2021-07-18] MEDS: MORPHINE SULFATE ER 30 MG TABLET PO SCH (21:18)
[2021-07-18] MEDS: AMITRIPTYLINE HCL 50 MG TAB PO SCH (21:18)
[2021-07-18] MEDS: MORPHINE SULFATE ER 15 MG TABLET PO SCH (21:19)
[2021-07-19] MEDS: SODIUM CHLORIDE 0.9% 1,000 ML IV SCH ×3 (00:58→17:39)
[2021-07-19] MEDS: IPRATROPIUM-ALBUTEROL 3 ML NEB INHALATION SCH ×4 (07:40→20:48)
[2021-07-19] MEDS: BUDESONIDE 1 MG/2 ML NEBU INHALATION SCH ×2 (07:40→20:48)
--- NOTE | 2021-07-19 09:11 | US ---
EXAMINATION TYPE: US abdomen limited DATE OF EXAM: 07/19/2021 COMPARISON: NONE CLINICAL HISTORY: Elevated liver enzymes. elevated liver enzymes EXAM MEASUREMENTS: Liver Length: 17 cm Gallbladder Wall: 2 cm CBD: .4 cm Right Kidney: 8.7 x 3.5 x 4.3 cm Aorta; 4.2 x 4.0 cm AAA visualized mid aorta. Pancreas: Tail obscured by overlying bowel gas Liver: wnl Gallbladder: Contracted no stones seen patient was NPO. Evidence for sonographic Raza's sign: no CBD: wnl Right Kidney: wnl IMPRESSION: Contracted gallbladder. Abdominal aortic aneurysm. Otherwise unremarkable examination.
[2021-07-19] MEDS: NICOTINE 21MG/24HR PATCH TRANSDERM SCH (09:36)
[2021-07-19] MEDS: PANTOPRAZOLE 40 MG TABLET PO SCH (09:36)
[2021-07-19] MEDS: MORPHINE SULFATE ER 15 MG TABLET PO SCH ×2 (09:36→21:13)
[2021-07-19] MEDS: ASPIRIN 325 MG TAB PO SCH (09:36)
[2021-07-19] MEDS: PREGABALIN 100 MG CAP PO SCH ×2 (09:37→21:12)
[2021-07-19] MEDS: MONTELUKAST 10 MG TAB PO SCH (09:37)
[2021-07-19] MEDS: MORPHINE SULFATE ER 30 MG TABLET PO SCH ×2 (09:37→21:12)
[2021-07-19] MEDS: SERTRALINE 100 MG TAB PO SCH ×2 (09:37→21:12)
[2021-07-19] MEDS: FOLIC ACID 1 MG TAB PO SCH (09:37)
[2021-07-19] MEDS: ENOXAPARIN 40 MG/0.4 ML SYRINGE SQ SCH (09:38)
--- NOTE | 2021-07-19 10:37 | P.PN ---
Subjective Progress Note Date: 07/19/21 The patient is seen at bedside and states she is doing much better compared to initial presentation. She stated that yesterday by [employer] food delivery lady that patient seems confused when food was being deliver to her placed. She denies remembers wondering in the streets. She denies of fever, headache. She has chronic lower back pain and follows-up with pain specialist. Objective - Vital Signs Vital signs: Vital Signs Temp 98.4 F 07/19/21 04:00 Pulse 92 07/19/21 07:57 Resp 21 07/19/21 04:00 BP 124/66 07/19/21 04:00 Pulse Ox 94 L 07/19/21 04:00 Intake & Output 07/18/21 07/19/21 07/19/21 18:59 06:59 18:59 Intake Total 120 820 480 Balance 120 820 480 Weight 74.843 kg Intake: Intake, IV Titration 700 Amount Sodium Chloride 0.9% 1, 700 000 ml @ 100 mls/hr IV . Q10H [facility] Rx#:[id number] Oral 120 120 480 Other: Voiding Method Diaper Diaper Incontinent Incontinent # Voids 1 3 - Exam GENERAL: The patient is lying in bed and is not in acute distress. NEUROLOGICAL: Higher mental function: The patient is awake, alert, oriented to self, place and time. Patient is following simple and complex commands. She is able to identify objects correctly (pen, watch, cup, straw). No aphasia and no neglect. Cranial nerves: The pupils are round, equal and reactive to light. Visual linton are full to confrontation throughout. Extraocular movement is intact no nystagmus is noted. Facial sensation is normal to touch throughout. The facial strength is normal throughout. Tongue is midline and moved [id number] without any difficulty. No dysarthria is noted. Shoulder shrug is normal bilaterally. Motor: The strength is 5 over 5 throughout. Normal tone and bulk. Cerebellum: Normal finger to nose bilaterally. Sensation: Sensation is normal to touch throughout. WORK-UP: Vitamin B12: 1943 Serum folate >20 TSH: 1.730 Ammonia level is less than 9, calcium is 8.7. Lipid panel: TG 195, Cholestrol 214, LDL 121, HDL 53. Urinalysis is negative for urinary tract infection. Urine drug screen is positive for opiates, barbiturates and tricyclics. Serum alcohol was less than 10. CT of the head is reported as no acute intracranial hemorrhage or gross acute cortical infarct. I personally reviewed the CT of the head and there is no acute or subacute ischemia and there is no interpretable hemorrhage CT angiography of the head and neck was reported as no significant arterial stenosis, occlusion, dissection or other acute arterial abnormality. 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 Routine EEG on 07/18/2021: Abnormal routine EEG. The background slowing is suggestive of mild encephalopathy. There is epileptiform discharges over the frontal (appears right frontal) which can increase the risk for seizure. Otherwise, no focal slowing or seizure seen on this study. Clinic correlation is recommended. Recommend a 2 1/2 hour EEG. - Labs CBC & Chem 7: 07/18/21 07:47 07/19/21 10:50 Labs: Abnormal Lab Results - Last 24 Hours (Table) 07/18/21 07/18/21 Range/Units 07:47 07:47 Triglycerides 195.00 H (0.00-149.00) mg/dL Cholesterol 214.00 H (0.00-200.00) mg/dL Vitamin B12 1943.0 H (200.0-944.0) pg/mL Assessment and Plan Assessment: Encephalopathy of seems suspicious for seizure (based on EEG). Patient is a febrile and no leukocytosis which does not seem to be suggestive of meningeal encephalitis---mentation improved and patient is back to baseline Elevated LFT's (AST 219 and ALT 54) Elevated troponin History of heart failure COPD Chronic pain on Polypharmacy Chronic ongoing tobacco use. Plan: * Routine EEG on 07/18/2021: Abnormal routine EEG. The background slowing is s uggestive of mild encephalopathy. There is epileptiform discharges over the frontal (appears right frontal) which can increase the risk for seizure. Otherwise, no focal slowing or seizure seen on this study. Clinic correlation is recommended. Recommend a 2 1/2 hour EEG. * Yesterday the patient received 1mg of Ativan and loaded patient with Keppra 1500mg once. I spoke with the patient about my finding and she is an agreement with starting antiepileptic drugs. Therefore, started her on Vimpat 50mg bid (not Keppra because of her history of depression). Will obtain 2.5 hour EEG on Wednesday (07/21/2021). * Pending MRI Brain w/ and w/o. * PT OT is consulted * Cardiology team is consulted for elevated troponin. * I feel patient is on polypharmacy and will defer modification of medication to the primary team. * Patient was counseled on tobacco cessation for 3 minutes. * We'll defer the rest of the medical management to the primary team * For DVT prophylaxis: on Enoxaparin. * Upon discharge, the patient needs to follow-up with a neurologist as outpatient within 1-2 weeks. The plan is discussed with patient and her nurse. Kendrick Stock M.D. Neuro-Hospitalist Time with Patient: Less than 30
[2021-07-19 11:30] LABS: African American GFR (CKD) >90 (>60 ml/min/1.73 sqM); Anion Gap 6 mmol/L; Blood Urea Nitrogen 21 mg/dL (7-17); Calcium 8.3 mg/dL (8.4-10.2); Carbon Dioxide 33 mmol/L (22-30); Chloride 100 mmol/L (98-107); Glucose 161 mg/dL (74-99); Non-African American GFR(CKD) >90 (>60 ml/min/1.73 sqM); Sodium 139 mmol/L (137-145)
[2021-07-19 11:38] LABS: Potassium 2.6 mmol/L (3.5-5.1)
[2021-07-19] MEDS ORDERED: Potassium Replacement Protocol 1 EACH MISC MISCELLANE PRN (11:47)
[2021-07-19] MEDS ORDERED: POTASSIUM CHLORIDE ER 20 MEQ TAB.ER PO SCH (12:00)
--- NOTE | 2021-07-19 13:31 | MR ---
EXAMINATION TYPE: MR brain wo/w con DATE OF EXAM: 07/19/2021 1:23 PM COMPARISON: NONE HISTORY: Altered mental status CONTRAST: Patient received 7.5 mL intravenous Gadavist gadolinium contrast. Multiplanar and multispin-echo imaging of the brain was performed . Pre and post contrast enhanced i mages are obtained. The ventricles, basal cisterns and sulci overlying the cerebral convexities are mildly enlarged. There is evidence of mild periventricular white matter ischemic demyelination. Remote deep white matter insults are also noted. No acute edema is seen on diffusion weighted imaging. There is no evidence for midline shift or mass effect. Acute intracranial hemorrhage or extra-axial collection is not evident. No enhancing lesions are seen. The paranasal sinuses and mastoid air cells are well-aerated. IMPRESSION: Age-related atrophic and chronic small vessel ischemic change. No acute intracranial process at this time. No enhancing lesions are seen.
[2021-07-19] MEDS: POTASSIUM CHLORIDE ER 20 MEQ TAB.ER PO SCH ×2 (16:07→17:31)
[2021-07-19] MEDS: LACOSAMIDE 50 MG TABLET PO SCH ×2 (16:07→21:17)
--- NOTE | 2021-07-19 17:08 | P.PN ---
Progress Note - Text Progress Note Date: 07/19/21 Chief Complaint: Short of breath This is a 66-year-old patient who follows with visiting physicians . Patient presented to the ER with altered mental status. Patient is brought in by the EMS as a bystander found the patient wandering around outside. Patient is awake. She is able to the ER physician on name but was unable to tell them that she is on her age. She was looking around. Getting 2 different sandals and in the nightgown. Not able to answer anymore questions. During my questioning patient appears to be slightly distant. Even though awake. Not seeming to be very alert. I discussed this with the neurologist who also had trouble getting more history out of the patient. Patient does complain or shortness of breath. Slight cough. No fever no chills. Admitted with metabolic encephalopathy. From medications. Also seizure. MS Contin dose was cut back, medical dose cutback. Flexeril was made when necessary. Claritin was discontinued. Also patient has COPD exacerbation. Given DuoNeb steroids. July 19: Patient will on her today. Answering questions. Starting to eat. Tired Still short of breath and wheezing. Patient did confirm having history of seizures in the past. Discussed with Dr. Stock from neurology. Patient be started on Vimpat. EEG did show encephalopathic and seizure activity. Active Medications Hydrocodone Bitart/Acetaminophen (Hydrocodone/Apap 10-325mg 1 Each Tab) 1 each PO BID PRN PRN Reason: Pain Albuterol/Ipratropium (Ipratropium-Albuterol 3 Ml Neb) 3 ml INHALATION RT-Q6H PRN PRN Reason: Shortness Of Breath Albuterol/Ipratropium (Ipratropium-Albuterol 3 Ml Neb) 3 ml INHALATION RT-QID [facility] Last Admin: 07/19/21 16:14 Dose: 3 ml Documented by: Amitriptyline HCl (Amitriptyline Hcl 50 Mg Tab) 100 mg PO HS [facility] Last Admin: 07/18/21 21:18 Dose: 100 mg Documented by: Aspirin (Aspirin 81 Mg) 81 mg PO DAILY [facility] Atorvastatin Calcium (Atorvastatin 20 Mg Tab) 20 mg PO HS [facility] Budesonide (Budesonide 1 Mg/2 Ml Nebu) 1 mg INHALATION RT-BID [facility] Last Admin: 07/19/21 07:40 Dose: 1 mg Documented by: Calcium Carbonate/Glycine (Calcium Carbonate 500 Mg Chewable) 1,000 mg PO Q4HR PRN PRN Reason: Dyspepsia Cyclobenzaprine HCl (Cyclobenzaprine 10 Mg Tab) 10 mg PO TID PRN PRN Reason: Muscle Spasm Enoxaparin Sodium (Enoxaparin 40 Mg/0.4 Ml Syringe) 40 mg SQ DAILY [facility] Last Admin: 07/19/21 09:38 Dose: 40 mg Documented by: Folic Acid (Folic Acid 1 Mg Tab) 1 mg PO DAILY [facility] Last Admin: 07/19/21 09:37 Dose: 1 mg Documented by: Sodium Chloride (Saline 0.9%) 1,000 mls @ 100 mls/hr IV .Q10H [facility] Last Admin: 07/19/21 11:45 Dose: Not Given Documented by: Ibuprofen (Ibuprofen 800 Mg Tab) 800 mg PO TID PRN PRN Reason: Pain Lacosamide (Lacosamide 50 Mg Tablet) 50 mg PO BID [facility] Last Admin: 07/19/21 16:07 Dose: 50 mg Documented by: Lactulose (Lactulose 20 Gm/30 Ml Cup) 20 gm PO DAILY PRN PRN Reason: Constipation Lorazepam (Lorazepam 1 Mg Tab) 1 mg PO QID PRN PRN Reason: Anxiety Last Admin: 07/19/21 12:34 Dose: 1 mg Documented by: Lorazepam (Lorazepam 2 Mg/Ml Inj) 1 mg IV Q4HR PRN PRN Reason: Seizures Montelukast Sodium (Montelukast 10 Mg Tab) 10 mg PO DAILY [facility] Last Admin: 07/19/21 09:37 Dose: 10 mg Documented by: Morphine Sulfate (Morphine Sulfate Er 30 Mg Tablet) 30 mg PO Q12HR [facility]; Protocol Last Admin: 07/19/21 09:37 Dose: 30 mg Documented by: Morphine Sulfate (Morphine Sulfate Er 15 Mg Tablet) 15 mg PO Q12HR [facility]; Protocol Last Admin: 07/19/21 09:36 Dose: 15 mg Documented by: Naloxone HCl (Naloxone 0.4 Mg/Ml 1 Ml Vial) 0.2 mg IV Q2M PRN PRN Reason: Opioid Reversal Nicotine (Nicotine 21mg/24hr Patch) 1 patch TRANSDERM DAILY [facility] Last Admin: 07/19/21 09:36 Dose: 1 patch Documented by: Lubiprostone [ Amitiza] 24 Mcg Capsule 24 mcg PO DAILY [facility] Last Admin: 07/19/21 11:45 Dose: Not Given Documented by: Pantoprazole Sodium (Pantoprazole 40 Mg Tablet) 40 mg PO DAILY [facility] Last Admin: 07/19/21 09:36 Dose: 40 mg Documented by: Pregabalin (Pregabalin 100 Mg Cap) 100 mg PO BID [facility] Last Admin: 07/19/21 09:37 Dose: 100 mg Documented by: Prochlorperazine Maleate (Prochlorperazine 5 Mg Tab) 5 mg PO Q8HR PRN PRN Reason: Nausea And Vomiting Sertraline HCl (Sertraline 100 Mg Tab) 100 mg PO BID [facility] Last Admin: 07/19/21 09:37 Dose: 100 mg Documented by: Past medical history to include: Hyperlipidemia, COPD, CHF, anxiety, depression, chronic low back pain being followed by Dr. Mcneil Social history: Lives alone. Smokes a pack a day. Denies alcohol. Denies any drugs. Family history: Reviewed, noncontributory to presentation Physical examination: VITAL SIGNS: 98.9, 70, 14, 10 7 x 65, 90% on 3 L GENERAL: Up in bed, more awake, answering questions EYES: Pupils equal. Conjunctiva normal. HEENT: External appearance of nose and ears normal, oral cavity grossly normal. NECK: JVD not raised; masses not palpable. HEART: First and second heart sounds are normal; no edema. LUNGS: Respiratory rate increased; decreased breath sounds prolonged expiration. ABDOMEN: Soft, nontender, liver spleen not palpable, no masses palpable. PSYCH: Answering questions more appropriately MUSCULOSKELETAL: Loss of subcutaneous fat and muscle mass. Evidence of OA INVESTIGATIONS, reviewed in the clinical context: MRI brain: Age-related atrophy and chronic changes. EEG showing both encephalopathic and seizure activity. Abdominal ultrasound: Contracted gallbladder. Abdominal aortic aneurysm 4.2 x 4 cm July 19: 4139 potassium 2.6 BUN 21 creatinine 0.55 LDL 121 White count 6.8 hemoglobin 15.4 platelets 171 sodium 136 potassium 3 BUN 17 creatinine 0.73 blood glucose 125 AST 219 ALT 54 Troponin I 0.0285, 0.271, 0.232 LDL 121 UA ketones 2+. Protein 1+. Urine drug screen positive for opiates, barbiturates, tricyclic antidepressants EKG tracing personally reviewed by me-sinus rhythm. Nonspecific ST segment changes. PVC. CT brain: No acute changes. Chest x-ray film: Chronic interstitial changes. COPD. CT on September head and neck: No significant stenosis. 2-D echocardiogram: EF 55-60%. Assessment and plan: -Acute Metabolic encephalopathy from medications: This is a patient was found wandering outside in the nitro. wearing sandals of 2 different kind. In the ER patient was somewhat distant appearing. Really could not answer questions. Even though awake. It may be noted that patient is on significant medications that may affect sensorium including Lyrica 150 mg twice daily, MS Contin 60 mg twice daily, Flexeril, and Claritin. In addition to Fioricet. cut back Lyrica 200 mg twice a day. Cutback MS Contin to 45 mg twice a day. DC Claritin. -Chronic low back pain with herniated disc MS Contin cut back to 45 mg twice a day. Use [place] 10 twice a day. Change Flexeril to when necessary -Acute COPD exacerbation in a current smoker: Slow to respond DuoNeb 4 times a day. Pulmicort 1 mg twice a day. Add Solu-Medrol IV -Seizures. Patient does confirm having a prior history of seizures: New diagnosis. vimpat 50 mg twice a day started today -Hyperlipidemia Change to Lipitor 40 mg daily at bedtime -GERD Protonix 40 mg a day -Severe Hypokalemia,: Today Replace potassium -Chronic nicotine dependence, cigarette smoker Nicotine patch -Troponin leak. No rise and fall patent. Possibly from hemodynamic mismatch. No chest pain. -Abnormal LFTs. Check acute hepatitic panel. Liver ultrasound -Abdominal aortic aneurysm 4.2 x 4 cm Patient started on Vimpat 50 mg twice a day. Add IV Solu-Medrol. Replace potassium. Discussed with Dr. Stoner from neurology. Discussed with patient. I spent today 45 minutes with over 25 minutes of discussion.
[2021-07-19 17:15] LABS: Hepatitis A Antibody IgM Nonreactive (Nonreactive); Hepatitis B Core IgM Nonreactive (Nonreactive); Hepatitis B Surface Antigen Nonreactive (Nonreactive); Hepatitis C IgG Antibody Nonreactive (Nonreactive)
[2021-07-19] MEDS: ATORVASTATIN 20 MG TAB PO SCH (21:12)
[2021-07-19] MEDS: AMITRIPTYLINE HCL 50 MG TAB PO SCH (21:12)
[2021-07-20] MEDS: SODIUM CHLORIDE 0.9% 1,000 ML IV SCH (04:05)
[2021-07-20] MEDS: BUDESONIDE 1 MG/2 ML NEBU INHALATION SCH ×2 (07:54→19:21)
[2021-07-20] MEDS: IPRATROPIUM-ALBUTEROL 3 ML NEB INHALATION SCH ×4 (07:54→19:21)
[2021-07-20 08:13] LABS: African American GFR (CKD) >90 (>60 ml/min/1.73 sqM); Anion Gap 7 mmol/L; Blood Urea Nitrogen 17 mg/dL (7-17); Calcium 8.6 mg/dL (8.4-10.2); Carbon Dioxide 32 mmol/L (22-30); Chloride 102 mmol/L (98-107); Glucose 116 mg/dL (74-99); Non-African American GFR(CKD) >90 (>60 ml/min/1.73 sqM); Potassium 3.7 mmol/L (3.5-5.1); Sodium 141 mmol/L (137-145)
[2021-07-20] MEDS: NICOTINE 21MG/24HR PATCH TRANSDERM SCH (10:16)
[2021-07-20] MEDS: PREGABALIN 100 MG CAP PO SCH ×2 (10:16→21:05)
[2021-07-20] MEDS: MORPHINE SULFATE ER 15 MG TABLET PO SCH ×2 (10:16→21:05)
[2021-07-20] MEDS: LACOSAMIDE 50 MG TABLET PO SCH ×2 (10:16→21:04)
[2021-07-20] MEDS: ASPIRIN 81 MG PO SCH (10:18)
[2021-07-20] MEDS: MONTELUKAST 10 MG TAB PO SCH (10:18)
[2021-07-20] MEDS: SERTRALINE 100 MG TAB PO SCH ×2 (10:18→21:05)
[2021-07-20] MEDS: FOLIC ACID 1 MG TAB PO SCH (10:18)
[2021-07-20] MEDS: PANTOPRAZOLE 40 MG TABLET PO SCH (10:18)
[2021-07-20] MEDS: MORPHINE SULFATE ER 30 MG TABLET PO SCH ×2 (10:18→21:04)
[2021-07-20] MEDS: ENOXAPARIN 40 MG/0.4 ML SYRINGE SQ SCH (10:26)
--- NOTE | 2021-07-20 10:52 | P.PN ---
Progress Note - Text Progress Note Date: 07/20/21 Chief Complaint: Short of breath This is a 66-year-old patient who follows with visiting physicians . Patient presented to the ER with altered mental status. Patient is brought in by the EMS as a bystander found the patient wandering around outside. Patient is awake. She is able to the ER physician on name but was unable to tell them that she is on her age. She was looking around. Getting 2 different sandals and in the nightgown. Not able to answer anymore questions. During my questioning patient appears to be slightly distant. Even though awake. Not seeming to be very alert. I discussed this with the neurologist who also had trouble getting more history out of the patient. Patient does complain or shortness of breath. Slight cough. No fever no chills. Admitted with metabolic encephalopathy. From medications. Also seizure. MS Contin dose was cut back, medical dose cutback. Flexeril was made when necessary. Claritin was discontinued. Also patient has COPD exacerbation. Given DuoNeb steroids. July 19: Patient will on her today. Answering questions. Starting to eat. Tired Still short of breath and wheezing. Patient did confirm having history of seizures in the past. Discussed with Dr. Stock from neurology. Patient be started on Vimpat. EEG did show encephalopathic and seizure activity. July 20: Sitting up in a chair. Oral intake better. Awake answer questions. Discussed with Dr. Stock from neurology. Patient to continue current dose of Vimpat. Discussed with patient. Short of breath wheezing slowly improving. Active Medications Hydrocodone Bitart/Acetaminophen (Hydrocodone/Apap 10-325mg 1 Each Tab) 1 each PO BID PRN PRN Reason: Pain Albuterol/Ipratropium (Ipratropium-Albuterol 3 Ml Neb) 3 ml INHALATION RT-Q6H PRN PRN Reason: Shortness Of Breath Albuterol/Ipratropium (Ipratropium-Albuterol 3 Ml Neb) 3 ml INHALATION RT-QID [facility] Last Admin: 07/20/21 07:54 Dose: 3 ml Documented by: Amitriptyline HCl (Amitriptyline Hcl 50 Mg Tab) 100 mg PO HS [facility] Last Admin: 07/19/21 21:12 Dose: 100 mg Documented by: Aspirin (Aspirin 81 Mg) 81 mg PO DAILY [facility] Last Admin: 07/20/21 10:18 Dose: 81 mg Documented by: Atorvastatin Calcium (Atorvastatin 20 Mg Tab) 20 mg PO HS [facility] Last Admin: 07/19/21 21:12 Dose: 20 mg Documented by: Budesonide (Budesonide 1 Mg/2 Ml Nebu) 1 mg INHALATION RT-BID [facility] Last Admin: 07/20/21 07:54 Dose: 1 mg Documented by: Calcium Carbonate/Glycine (Calcium Carbonate 500 Mg Chewable) 1,000 mg PO Q4HR PRN PRN Reason: Dyspepsia Cyclobenzaprine HCl (Cyclobenzaprine 10 Mg Tab) 10 mg PO TID PRN PRN Reason: Muscle Spasm Enoxaparin Sodium (Enoxaparin 40 Mg/0.4 Ml Syringe) 40 mg SQ DAILY [facility] Last Admin: 07/20/21 10:26 Dose: Not Given Documented by: Folic Acid (Folic Acid 1 Mg Tab) 1 mg PO DAILY [facility] Last Admin: 07/20/21 10:18 Dose: 1 mg Documented by: Sodium Chloride (Saline 0.9%) 1,000 mls @ 100 mls/hr IV .Q10H [facility] Last Admin: 07/20/21 04:05 Dose: Not Given Documented by: Ibuprofen (Ibuprofen 800 Mg Tab) 800 mg PO TID PRN PRN Reason: Pain Lacosamide (Lacosamide 50 Mg Tablet) 50 mg PO BID [facility] Last Admin: 07/20/21 10:16 Dose: 50 mg Documented by: Lactulose (Lactulose 20 Gm/30 Ml Cup) 20 gm PO DAILY PRN PRN Reason: Constipation Lorazepam (Lorazepam 1 Mg Tab) 1 mg PO QID PRN PRN Reason: Anxiety Last Admin: 07/19/21 12:34 Dose: 1 mg Documented by: Lorazepam (Lorazepam 2 Mg/Ml Inj) 1 mg IV Q4HR PRN PRN Reason: Seizures Montelukast Sodium (Montelukast 10 Mg Tab) 10 mg PO DAILY [facility] Last Admin: 07/20/21 10:18 Dose: 10 mg Documented by: Morphine Sulfate (Morphine Sulfate Er 30 Mg Tablet) 30 mg PO Q12HR [facility]; Protocol Last Admin: 07/20/21 10:18 Dose: 30 mg Documented by: Morphine Sulfate (Morphine Sulfate Er 15 Mg Tablet) 15 mg PO Q12HR [facility]; Protocol Last Admin: 07/20/21 10:16 Dose: 15 mg Documented by: Naloxone HCl (Naloxone 0.4 Mg/Ml 1 Ml Vial) 0.2 mg IV Q2M PRN PRN Reason: Opioid Reversal Nicotine (Nicotine 21mg/24hr Patch) 1 patch TRANSDERM DAILY [facility] Last Admin: 07/20/21 10:16 Dose: 1 patch Documented by: Lubiprostone [ Amitiza] 24 Mcg Capsule 24 mcg PO DAILY [facility] Last Admin: 07/19/21 11:45 Dose: Not Given Documented by: Pantoprazole Sodium (Pantoprazole 40 Mg Tablet) 40 mg PO DAILY [facility] Last Admin: 07/20/21 10:18 Dose: 40 mg Documented by: Pregabalin (Pregabalin 100 Mg Cap) 100 mg PO BID [facility] Last Admin: 07/20/21 10:16 Dose: 100 mg Documented by: Prochlorperazine Maleate (Prochlorperazine 5 Mg Tab) 5 mg PO Q8HR PRN PRN Reason: Nausea And Vomiting Sertraline HCl (Sertraline 100 Mg Tab) 100 mg PO BID [facility] Last Admin: 07/20/21 10:18 Dose: 100 mg Documented by: Past medical history to include: Hyperlipidemia, COPD, CHF, anxiety, depression, chronic low back pain being followed by Dr. Mcneil Social history: Lives alone. Smokes a pack a day. Denies alcohol. Denies any drugs. Family history: Reviewed, noncontributory to presentation Physical examination: VITAL SIGNS: 99, 93, 18, 1:30/80, 94% on 2 L GENERAL: Up in a chair, awake, EYES: Pupils equal. Conjunctiva normal. HEENT: External appearance of nose and ears normal, oral cavity grossly normal. NECK: JVD not raised; masses not palpable. HEART: First and second heart sounds are normal; no edema. LUNGS: Respiratory rate increased; decreased breath sounds ABDOMEN: Soft, nontender, liver spleen not palpable, no masses palpable. PSYCH: AO 3, mood and affect slightly anxious MUSCULOSKELETAL: Loss of subcutaneous fat and muscle mass. Evidence of OA INVESTIGATIONS, reviewed in the clinical context: July 20: Potassium 3.7 creatinine 0.59 Acute hepatitis panel: Negative MRI brain: Age-related atrophy and chronic changes. EEG showing both encephalopathic and seizure activity. Abdominal ultrasound: Contracted gallbladder. Abdominal aortic aneurysm 4.2 x 4 cm July 19: 4139 potassium 2.6 BUN 21 creatinine 0.55 LDL 121 White count 6.8 hemoglobin 15.4 platelets 171 sodium 136 potassium 3 BUN 17 creatinine 0.73 blood glucose 125 AST 219 ALT 54 Troponin I 0.0285, 0.271, 0.232 LDL 121 UA ketones 2+. Protein 1+. Urine drug screen positive for opiates, barbiturates, tricyclic antidepressants EKG tracing personally reviewed by me-sinus rhythm. Nonspecific ST segment changes. PVC. CT brain: No acute changes. Chest x-ray film: Chronic interstitial changes. COPD. CT on September head and neck: No significant stenosis. 2-D echocardiogram: EF 55-60%. Assessment and plan: -Acute Metabolic encephalopathy from medications: This is a patient was found wandering outside in the nitro. wearing sandals of 2 different kind. In the ER patient was somewhat distant appearing. Really could not answer questions. Even though awake. It may be noted that patient is on significant medications that may affect sensorium including Lyrica 150 mg twice daily, MS Contin 60 mg twice daily, Flexeril, and Claritin. In addition to Fioricet. cut back Lyrica 200 mg twice a day. Cutback MS Contin to 45 mg twice a day. DC Claritin. -Chronic low back pain with herniated disc MS Contin cut back to 45 mg twice a day. Use [place] 10 twice a day. Flexeril when necessary -Acute COPD exacerbation in a current smoker: Improving DuoNeb 4 times a day. Pulmicort 1 mg twice a day. By mouth prednisone -Seizures. Patient does confirm having a prior history of seizures:. vimpat 50 mg twice a day . Patient to follow-up with her neurologist -Hyperlipidemia Lipitor 40 mg daily at bedtime -GERD Protonix 40 mg a day -Severe Hypokalemia,: Corrected -Chronic nicotine dependence, cigarette smoker Nicotine patch -Troponin leak. No rise and fall and levels.. Possibly from hemodynamic mismatch. No chest pain. -Abnormal LFTs. Acute hepatic panel negative.. Liver ultrasound unremarkable -Abdominal aortic aneurysm 4.2 x 4 cm Continue Vimpat 50 mg twice a day. , Oral prednisone Discussed with Dr. stock from neurology. Discussed with patient. Increase activity as tolerated.
[2021-07-20] MEDS ORDERED: methylPREDNISolone SOD SUCCI 40 MG/ML 1 ML VIAL IV SCH (11:00)
[2021-07-20] MEDS: predniSONE 20 MG TAB PO SCH (13:14)
[2021-07-20] MEDS: HYDROcodone/APAP 10-325MG 1 EACH TAB PO PRN ×2 (13:15→20:02)
--- NOTE | 2021-07-20 13:49 | P.PN ---
Subjective Progress Note Date: 07/20/21 The patient is seen at bedside and feels she is back to baseline. She notified me and primary team that she has history of seizures in and was being seen by Dr. Núñez for neurological management and she does not recall the seizure medication she was on. Objective - Vital Signs Vital signs: Vital Signs Temp 99 F 07/20/21 10:15 Pulse 88 07/20/21 11:13 Resp 18 07/20/21 10:15 BP 130/80 07/20/21 10:15 Pulse Ox 94 L 07/20/21 10:15 Intake & Output 07/19/21 07/20/21 07/20/21 18:59 06:59 18:59 Intake Total 2035 480 Balance 2035 480 Intake: Intake, IV Titration 600 Amount Sodium Chloride 0.9% 1, 600 000 ml @ 100 mls/hr IV . Q10H BETTY Rx#:[id number] Oral 1436 480 Other: Voiding Method Diaper Bedside Commode Bedside Commode Incontinent Diaper Diaper Incontinent Incontinent # Voids 2 1 - Exam GENERAL: The patient is lying in bed and is not in acute distress. NEUROLOGICAL: Higher mental function: The patient is awake, alert, oriented to self, place and time. Patient is following simple and complex commands. She is able to identify objects correctly (pen, watch, cup, straw). No aphasia and no neglect. Cranial nerves: The pupils are round, equal and reactive to light. Visual linton are full to confrontation throughout. Extraocular movement is intact no nystagmus is noted. Facial sensation is normal to touch throughout. The facial strength is normal throughout. Tongue is midline and moved [id number] without any difficulty. No dysarthria is noted. Shoulder shrug is normal bilaterally. Motor: The strength is 5 over 5 throughout. Normal tone and bulk. Cerebellum: Normal finger to nose bilaterally. Sensation: Sensation is normal to touch throughout. WORK-UP: Vitamin B12: 1943 Serum folate >20 TSH: 1.730 Ammonia level is less than 9, calcium is 8.7. Lipid panel: TG 195, Cholestrol 214, LDL 121, HDL 53. Urinalysis is negative for urinary tract infection. Urine drug screen is positive for opiates, barbiturates and tricyclics. Serum alcohol was less than 10. CT of the head is reported as no acute intracranial hemorrhage or gross acute cortical infarct. I personally reviewed the CT of the head and there is no acute or subacute ischemia and there is no interpretable hemorrhage CT angiography of the head and neck was reported as no significant arterial stenosis, occlusion, dissection or other acute arterial abnormality. Questionable small 4 mm saccular aneurysm versus infundibular of the supraclinoid portion of the left internal carotid artery. MRI Brain w and w/o: It is reported as age-related atrophic and chronic small vessel ischemic change. No acute intracranial process seen at this time. No enhancing lesion. Routine EEG on 07/18/2021: Abnormal routine EEG. The background slowing is suggestive of mild encephalopathy. There is epileptiform discharges over the frontal (appears right frontal) which can increase the risk for seizure. Otherwise, no focal slowing or seizure seen on this study. Clinic correlation is recommended. Recommend a 2 1/2 hour EEG. - Labs CBC & Chem 7: 07/18/21 07:47 07/20/21 07:41 Labs: Abnormal Lab Results - Last 24 Hours (Table) 07/20/21 Range/Units 07:41 Carbon Dioxide 32 H (22-30) mmol/L Glucose 116 H (74-99) mg/dL Assessment and Plan Assessment: Encephalopathy of seems suspicious for seizure (based on EEG) and goes with her history of seizures but is not on antiepileptic. Patient is a febrile and no leukocytosis which does not seem to be suggestive of meningeal encephalitis---mentation improved and patient is back to baseline History of seizure in but is not on antiepileptic drugs Elevated LFT's (AST 219 and ALT 54) Elevated troponin History of heart failure COPD Chronic pain on Polypharmacy Chronic ongoing tobacco use. Plan: * Routine EEG on 07/18/2021: Abnormal routine EEG. The background slowing is suggestive of mild encephalopathy. There is epileptiform discharges over the frontal (appears right frontal) which can increase the risk for seizure. Otherwise, no focal slowing or seizure seen on this study. Clinic correlation is recommended. Recommend a 2 1/2 hour EEG. * MRI Brain w/ and w/o is unremarkable. * Continue Vimpat 50mg bid was started during this hospital visit (not Keppra because of her history of depression). No need to repeat EEG or obtain a prolonged one since she has history of seizures and is back to baseline. She used to follow-up with Dr. Núñez. * PT OT is consulted * Cardiology team is consulted for elevated troponin. * I feel patient is on polypharmacy and will defer modification of medication to the primary team. * Patient was counseled on tobacco cessation for 3 minutes. * We'll defer the rest of the medical management to the primary team * For DVT prophylaxis: on Enoxaparin. * Patient was notified per [place] DMV, she cannot drive for 6 months unless seizure free, to avoid heights, use heavy machinary, swim unassisted. * Upon discharge, the patient needs to follow-up with a neurologist as outpatient within 1-2 weeks (Dr. Núñez). The plan is discussed with patient and her primary attending.. There is no further neurological work-up. Please Notify neurology team if any further concerns. Dr. Macias is on service starting tomorrow. Kendrick Stock M.D. Neuro-Hospitalist Time with Patient: Less than 30
[2021-07-20] MEDS: ATORVASTATIN 20 MG TAB PO SCH (21:04)
[2021-07-20] MEDS: AMITRIPTYLINE HCL 50 MG TAB PO SCH (21:04)
[2021-07-21 05:13] VITALS: RESP 16
[2021-07-21] MEDS: IPRATROPIUM-ALBUTEROL 3 ML NEB INHALATION SCH ×2 (09:19→12:55)
[2021-07-21] MEDS: BUDESONIDE 1 MG/2 ML NEBU INHALATION SCH (09:19)
[2021-07-21] MEDS: NICOTINE 21MG/24HR PATCH TRANSDERM SCH (11:31)
[2021-07-21] MEDS: PREGABALIN 100 MG CAP PO SCH (11:32)
[2021-07-21] MEDS: MONTELUKAST 10 MG TAB PO SCH (11:32)
[2021-07-21] MEDS: PANTOPRAZOLE 40 MG TABLET PO SCH (11:32)
[2021-07-21] MEDS: FOLIC ACID 1 MG TAB PO SCH (11:32)
[2021-07-21] MEDS: predniSONE 20 MG TAB PO SCH (11:33)
[2021-07-21] MEDS: SERTRALINE 100 MG TAB PO SCH (11:33)
[2021-07-21] MEDS: LACOSAMIDE 50 MG TABLET PO SCH (11:33)
[2021-07-21] MEDS: ENOXAPARIN 40 MG/0.4 ML SYRINGE SQ SCH ×2 (11:33→11:37)
[2021-07-21] MEDS: ASPIRIN 81 MG PO SCH (11:33)
[2021-07-21] MEDS: MORPHINE SULFATE ER 15 MG TABLET PO SCH (11:33)
[2021-07-21] MEDS: MORPHINE SULFATE ER 30 MG TABLET PO SCH (11:34)
[2021-07-21 13:40] VITALS: BP 156/89; PULSE 88; TEMP 99.4
--- NOTE | 2021-07-21 15:13 | EEG ---
ELECTROENCEPHALOGRAM REPORT DATE OF PROCEDURE: 07/21/2021 ELECTROENCEPHALOGRAM (EEG) REPORT: TECHNIQUE: This is a report from a prolonged 2-1/2-hour inpatient digital video EEG performed using the 10/20 electrode placement system. HISTORY: Patient found wandering outside. Other medical history includes heart failure, COPD, hyperlipidemia, anxiety, depression. CURRENT MEDICATIONS: Elavil, aspirin, Lipitor, Pulmicort, Flexeril, Lovenox, folic acid and others. FINDINGS: Recording start time: 07/21/2021 at 0742 hours. Recording end time: 07/21/2021 at 1013 hours. EVENTS: During this 2-1/2-hour video EEG, no clinical or electrographic seizures were recorded. BACKGROUND: The background activity consisted of 8 to 9 hertz rhythmic waveforms symmetrically distributed through both posterior quadrants. ACTIVATION Hyperventilation: Not performed. Photic stimulation: Symmetric driving seen. Sleep: Stages I and II sleep noted. ABNORMALITIES: None. IMPRESSION: Normal 2-1/2-hour video EEG. No clinical or electrographic seizures were recorded. No epileptiform activity is present. MMODL / IJN: [id number] /
--- NOTE | 2021-07-21 21:17 | P.DS ---
Providers Date of admission: 07/17/21 17:56 Expected date of discharge: 07/21/21 Attending physician: Soto Thomas Consults: 07/17/21 22:43 Consult Physician Routine Consulting Provider: Kendrick Stock Consult Reason/Comments: AMS Do you want consulting provider notified?: Yes Primary care physician: Yevgeniy Johnson MD Hospital Course: Chief Complaint: Short of breath This is a 66-year-old patient who follows with visiting physicians . Patient presented to the ER with altered mental status. Patient is brought in by the EMS as a bystander found the patient wandering around outside. Patient is awake. She is able to the ER physician on name but was unable to tell them that she is on her age. She was looking around. Getting 2 different sandals and in the nightgown. Not able to answer anymore questions. During my questioning patient appears to be slightly distant. Even though awake. Not seeming to be very alert. I discussed this with the neurologist who also had trouble getting more history out of the patient. Patient does complain or shortness of breath. Slight cough. No fever no chills. Admitted with metabolic encephalopathy. From medications. Also seizure. MS Contin dose was cut back, Lyrica dose cutback. Flexeril was made when necessary. Claritin was discontinued. Also patient has COPD exacerbation. Given DuoNeb steroids. Patient is counseled about smoking. Patient did confirm she had a history of seizures in the past. Started on Vimpat. Discussed with neurology Dr. Stoner. July 21: Breathing better. Oral intake fair. Patient reminded about the new dose of MS Contin and Lyrica. She will follow-up with her pain specialist. Reminded about smoking. Prednisone taper. Patient follow-up in neurology. Patient has 2 L of oxygen at home. Discussion and discharge planning more than 35 minutes Past medical history to include: Hyperlipidemia, COPD, CHF, anxiety, depression, chronic low back pain being followed by Dr. Mcneil Social history: Lives alone. Smokes a pack a day. Denies alcohol. Denies any drugs. Family history: Reviewed, noncontributory to presentation Physical examination: VITAL SIGNS: 99.4, 88, 18, 156/89, 94% on 2 L GENERAL: Up in a chair, awake, EYES: Pupils equal. Conjunctiva normal. HEENT: External appearance of nose and ears normal, oral cavity grossly normal. NECK: JVD not raised; masses not palpable. HEART: First and second heart sounds are normal; no edema. LUNGS: Respiratory rate increased; decreased breath sounds ABDOMEN: Soft, nontender, liver spleen not palpable, no masses palpable. PSYCH: AO 3, mood and affect slightly anxious MUSCULOSKELETAL: Loss of subcutaneous fat and muscle mass. Evidence of OA INVESTIGATIONS, reviewed in the clinical context: July 20: Potassium 3.7 creatinine 0.59 Acute hepatitis panel: Negative MRI brain: Age-related atrophy and chronic changes. EEG showing both encephalopathic and seizure activity. Abdominal ultrasound: Contracted gallbladder. Abdominal aortic aneurysm 4.2 x 4 cm July 19: 4139 potassium 2.6 BUN 21 creatinine 0.55 LDL 121 White count 6.8 hemoglobin 15.4 platelets 171 sodium 136 potassium 3 BUN 17 creatinine 0.73 blood glucose 125 AST 219 ALT 54 Troponin I 0.0285, 0.271, 0.232 LDL 121 UA ketones 2+. Protein 1+. Urine drug screen positive for opiates, barbiturates, tricyclic antidepressants EKG tracing personally reviewed by me-sinus rhythm. Nonspecific ST segment changes. PVC. CT brain: No acute changes. Chest x-ray film: Chronic interstitial changes. COPD. CT on September head and neck: No significant stenosis. 2-D echocardiogram: EF 55-60%. Assessment and plan: -Acute Metabolic encephalopathy from medications: This is a patient was found wandering outside in the nitro. wearing sandals of 2 different kind. In the ER patient was somewhat distant appearing. Really could not answer questions. Even though awake. It may be noted that patient is on significant medications that may affect sensorium including Lyrica 150 mg twice daily, MS Contin 60 mg twice daily, Flexeril, and Claritin. In addition to Fioricet. cut back Lyrica 100 mg twice a day. Cutback MS Contin to 45 mg twice a day. DC Claritin. -Chronic low back pain with herniated disc MS Contin cut back to 45 mg twice a day. Use Howard 10 twice a day. Flexeril when necessary -Acute COPD exacerbation in a current smoker: Improving Prednisone taper. Advair 2: one puff twice a day. DuoNeb every 6 when necessary. Combivent 2 puffs -Seizures. Patient does confirm having a prior history of seizures:. EEG showing some seizure activity. vimpat 50 mg twice a day . Patient to follow-up with her neurologist -Hyperlipidemia Lipitor 40 mg daily at bedtime -GERD Protonix 40 mg a day -Severe Hypokalemia,: Corrected -Chronic nicotine dependence, cigarette smoker Nicotine patch -Troponin leak. No rise and fall and levels.. Possibly from hemodynamic mismatch. No chest pain. -Abnormal LFTs. Acute hepatic panel negative.. Liver ultrasound unremarkable -Abdominal aortic aneurysm 4.2 x 4 cm Follow-up periodically outpatient with vascular surgery Disposition: Home Plan - Discharge Summary Discharge Rx Participant: No New Discharge Prescriptions: New Nicotine 21Mg/24Hr Patch [Habitrol] 1 patch TRANSDERM DAILY #14 patch Morphine Sulfate ER [Ms Contin] 15 mg PO Q12HR #6 tablet Lacosamide [Vimpat] 50 mg PO BID #60 tablet Aspirin 81 mg PO DAILY #30 Atorvastatin [Lipitor] 20 mg PO HS #30 tab Pregabalin [Lyrica] 100 mg PO BID #60 cap Morphine Sulfate ER [Ms Contin] 30 mg PO Q12HR #60 tablet predniSONE 10 mg PO DAILY #30 tab Continue Sertraline [Zoloft] 100 mg PO BID Amitriptyline HCl [Elavil] 100 mg PO HS Ibuprofen [Motrin] 800 mg PO TID PRN PRN Reason: Pain Montelukast [Singulair] 10 mg PO DAILY LORazepam [Ativan] 1 mg PO QID PRN PRN Reason: Anxiety Ipratropium-Albuterol Nebulize [Duoneb 0.5 mg-3 mg/3 ml Soln] 3 ml INHALATION RT-Q6H PRN PRN Reason: Shortness Of Breath Folic Acid 1 mg PO DAILY Ipratropium/Albuter 20-100Mcg [Combivent Respimat 20-100Mcg Inhaler] 2 puff INHALATION RT-Q6H PRN PRN Reason: Shortness Of Breath Butalb/APAP/Caff 50-325-40Mg [Fioricet 50-325-40] 1 - 2 tab PO Q6H PRN PRN Reason: Migraine Headache HYDROcodone/APAP 10-325MG [Howard 10-325] 1 tab PO BID PRN PRN Reason: Pain Lubiprostone [Amitiza] 24 mcg PO DAILY Fluticasone/Salmeterol [Advair Hfa 230-21 Mcg Inhaler] 1 puff INHALATION RT- BID Changed Cyclobenzaprine [Flexeril] 10 mg PO TID PRN #0 PRN Reason: Spasms Discontinued Simvastatin [Zocor] 40 mg PO HS Pregabalin [Lyrica] 150 mg PO BID Pantoprazole Sodium [Protonix] 40 mg PO DAILY Morphine Sulfate ER [Ms Contin] 60 mg PO BID Loratadine [Claritin] 10 mg PO DAILY Discharge Medication List Amitriptyline HCl [Elavil] 100 mg PO HS 11/02/18 [History] Ibuprofen [Motrin] 800 mg PO TID PRN 11/02/18 [History] Montelukast [Singulair] 10 mg PO DAILY 11/02/18 [History] Sertraline [Zoloft] 100 mg PO BID 11/02/18 [History] Butalb/APAP/Caff 50-325-40Mg [Fioricet 50-325-40] 1 - 2 tab PO Q6H PRN 07/17/21 [History] Fluticasone/Salmeterol [Advair Hfa 230-21 Mcg Inhaler] 1 puff INHALATION RT-BID 07/17/21 [History] Folic Acid 1 mg PO DAILY 07/17/21 [History] HYDROcodone/APAP 10-325MG [Howard 10-325] 1 tab PO BID PRN 07/17/21 [History] Ipratropium-Albuterol Nebulize [Duoneb 0.5 mg-3 mg/3 ml Soln] 3 ml INHALATION RT-Q6H PRN 07/17/21 [History] Ipratropium/Albuter 20-100Mcg [Combivent Respimat 20-100Mcg Inhaler] 2 puff INHALATION RT-Q6H PRN 07/17/21 [History] LORazepam [Ativan] 1 mg PO QID PRN 07/17/21 [History] Lubiprostone [Amitiza] 24 mcg PO DAILY 07/17/21 [History] Aspirin 81 mg PO DAILY #30 07/21/21 [Rx] Atorvastatin [Lipitor] 20 mg PO HS #30 tab 07/21/21 [Rx] Cyclobenzaprine [Flexeril] 10 mg PO TID PRN #0 07/21/21 [Rx] Lacosamide [Vimpat] 50 mg PO BID #60 tablet 07/21/21 [Rx] Morphine Sulfate ER [Ms Contin] 15 mg PO Q12HR #6 tablet 07/21/21 [Rx] Morphine Sulfate ER [Ms Contin] 30 mg PO Q12HR #60 tablet 07/21/21 [Rx] Nicotine 21Mg/24Hr Patch [Habitrol] 1 patch TRANSDERM DAILY #14 patch 07/21/21 [Rx] Pregabalin [Lyrica] 100 mg PO BID #60 cap 07/21/21 [Rx] predniSONE 10 mg PO DAILY #30 tab 07/21/21 [Rx] Follow up Appointment(s)/Referral(s): Edson Quevedo MD [REFERRING] - 2 Weeks (Office will call you and schedule follow up appointment. ) Verenice Chong MD [REFERRING] - 07/25/21 1:45 pm [facility] Visiting Nurse, [NON-STAFF] - Patient Instructions/Handouts: Heart Attack (DC), New-Onset Seizure in Adults (DC) Discharge Disposition: HOME SELF-CARE
== END 2021-07-21 15:17 | disposition home health service (06) | DRG 92 ==
LOC: EC 13:54 → 3SCARD 17:56
PROVIDERS: ADMIT Hospitalist; ATTEND Hospitalist
DX: G92.8 Other toxic encephalopathy (principal); J44.1 Chronic obstructive pulmonary disease with (acute) exacerbation; K82.0 Obstruction of gallbladder; T40.2X5A Adverse effect of other opioids, initial encounter; R56.9 Unspecified convulsions; E87.6 Hypokalemia; R77.8 Other specified abnormalities of plasma proteins; I71.4 Abdominal aortic aneurysm, without rupture; R94.5 Abnormal results of liver function studies; T42.6X5A Adverse effect of other antiepileptic and sedative-hypnotic drugs, initial encounter; T48.1X5A Adverse effect of skeletal muscle relaxants [neuromuscular blocking agents], initial encounter; T45.0X5A Adverse effect of antiallergic and antiemetic drugs, initial encounter; G45.4 Transient global amnesia; I50.9 Heart failure, unspecified; G89.29 Other chronic pain; K59.00 Constipation, unspecified; K21.9 Gastro-esophageal reflux disease without esophagitis; E78.5 Hyperlipidemia, unspecified; F17.210 Nicotine dependence, cigarettes, uncomplicated; F32.A Depression, unspecified; F41.9 Anxiety disorder, unspecified; M19.90 Unspecified osteoarthritis, unspecified site; Z28.310 Unvaccinated for COVID-19; M51.26 Other intervertebral disc displacement, lumbar region; Z91.83 Wandering in diseases classified elsewhere; Z98.890 Other specified postprocedural states; Z86.69 Personal history of other diseases of the nervous system and sense organs; Z88.2 Allergy status to sulfonamides; Z88.8 Allergy status to other drugs, medicaments and biological substances; Z79.899 Other long term (current) drug therapy; Z79.82 Long term (current) use of aspirin; Z79.51 Long term (current) use of inhaled steroids; Z79.891 Long term (current) use of opiate analgesic
CPT/HCPCS: 36415; 70450; 70496; 70498; 70553; 71046; 76705; 80048; 80053; 80061; 80074; 80306; 80320; 81001; 82140; 82607; 82746; 84443; 84484; 85025; 85610; 85730; 93005; 93306; 94640; 94760; 95816; 96365; 99285